=== PATIENT | male | born 1965 | race Caucasian/White ===

== ENCOUNTER 2016-09-12 08:07 | Day surgery (SDC) | payer BC ==
[2016-09-10 11:48] VITALS: BMI 27.7
[~2016-09-12 08:07] MED LIST: LACTATED RINGERS 1,000 ML IV SCH
[2016-09-12 08:23] VITALS: TEMP 98
[2016-09-12] MEDS ORDERED: LIDOCAINE 1% 20 ML VIAL (10MG/ML) FOR IV START INTRADERMA ONE (08:32)
[2016-09-12] MEDS ORDERED: PROPOFOL 10 MG/ML 20 ML VIAL IV ONE (08:45)
[2016-09-12] MEDS ORDERED: LIDOCAINE 1% INJ 10MG/ML (20 ML MDV) ONE (08:45)
--- NOTE | 2016-09-12 09:02 | P.PCN ---
Date of Procedure: 09/12/16 Procedure(s) Performed: BRIEF HISTORY: Patient is a 50-year-old pleasant white male, scheduled for an elective colonoscopy as a part of evaluation of a personal history of APC gene family history of FAP. He had prior colonoscopies and was noted to have tubular adenoma and his last colonoscopy was 2 years ago. PROCEDURE PERFORMED: Colonoscopy. PREOPERATIVE DIAGNOSIS: History of colon polyps/posterior history of APC gene IV sedation per Anesthesia. PROCEDURE: After informed consent was obtained, the patient, was brought into the endoscopy unit. IV conscious sedation was administered by Anesthesia under continuous monitoring. Distal rectal examination was normal. Initially the Olympus CF-160 flexible video colonoscope was then inserted in the rectum, gradually advanced into the cecum without any difficulty. Careful examination was performed as the scope was gradually being withdrawn. Ileocecal valve and the appendiceal orifice were visualized and appeared normal. Prep was excellent. Mucosa of the cecum, ascending colon, transverse colon, descending colon, sigmoid colon, and rectum appeared normal. Retroflexion was performed in the rectum and no lesions were seen. The patient tolerated the procedure well. IMPRESSION: Normal-appearing colon from rectum to cecum with no evidence of colorectal neoplasia . RECOMMENDATIONS: Findings of this examination were discussed with the patient as well as his family. He was advised to have a repeat screening colonoscopy in one to 2 years.
[2016-09-12 09:27] VITALS: BP 131/88; PULSE 76; RESP 18
== END 2016-09-12 09:45 | disposition home or self-care (01) ==
LOC: ORWHC2ENDO 08:07
PROVIDERS: ATTEND Internal Medicine Gastroenterology
DX: Z12.11 Encounter for screening for malignant neoplasm of colon (principal); Z86.010 Personal history of colon polyps; Z83.71 Family history of colonic polyps; E07.9 Disorder of thyroid, unspecified; K21.9 Gastro-esophageal reflux disease without esophagitis; Z87.891 Personal history of nicotine dependence; Z79.899 Other long term (current) drug therapy; Z98.890 Other specified postprocedural states
CPT/HCPCS: J2001; J2704; G0105; 99153

== ENCOUNTER 2017-03-27 08:31 | Day surgery (SDC) | payer BC ==
[2017-03-25 15:50] VITALS: BMI 27.0
[2017-03-27 10:04] VITALS: TEMP 97.1
[2017-03-27] MEDS ORDERED: LIDOCAINE 1% 20 ML VIAL (10MG/ML) FOR IV START INTRADERMA ONE (10:11)
[2017-03-27] MEDS ORDERED: LACTATED RINGERS 1,000 ML IV ONE ×2 (10:11)
[2017-03-27] MEDS ORDERED: PROPOFOL 10 MG/ML 20 ML VIAL IV ONE (10:37)
[2017-03-27 11:19] VITALS: BP 135/92; PULSE 67; RESP 16
--- NOTE | 2017-03-27 12:09 | P.PCN ---
Date of Procedure: 03/27/17 Preoperative Diagnosis: Postoperative Diagnosis: Procedure(s) Performed: BRIEF HISTORY: Patient is a []-year-old, pleasant, white male, scheduled for an elective upper endoscopy as a part of evaluation of chest pressure, chest pain and excessive burping for the last 2 months duration. He does have history of gastroesophageal reflux symptoms and Acharya's esophagus and last upper endoscopy was done 18 months ago. Biopsies did not show any evidence of dysplasia. Because of worsening symptoms he scheduled for repeat upper endoscopy today. He is on Prilosec 20 mg twice daily and was just started on Carafate 1 g 4 times daily. PROCEDURE PERFORMED: Esophagogastroduodenoscopy with biopsy. PREOPERATIVE DIAGNOSIS: Chest pressure, chest pain, history of GERD and Acharya' s esophagus. IV sedation per anesthesia. PROCEDURE: After informed consent was obtained, the patient was brought into the endoscopy unit. IV sedation was administered by Anesthesia under continuous monitoring. Initially the Olympus GIF-140 video endoscope was inserted into the mouth. Esophagus intubated without any difficulty. It was gradually advanced into the stomach and duodenum and carefully examined. The bulb and the second part of the duodenum appeared normal. The scope at this time was withdrawn to the stomach, adequately insufflated with air, and upon careful examination, mucosa of the antrum, had mild gastritis and biopsies were done from this area. The body, cardia and the fundus appeared normal. The scope was then withdrawn into the esophagus. Small hiatal hernia noted. The GE junction was located at 40 cm from the incisors. There was Acharya's esophagus extending from 38-40 minutes from the incisors and multiple biopsies were done from this area. The rest of the esophagus appeared normal. There were no erosions or ulcerations seen and the patient tolerated the procedure well. IMPRESSION: 1. Acharya's esophagus status post biopsy. 2. Small hernia. 3. Mild antral gastritis RECOMMENDATIONS: The findings of this examination were discussed with the patient as well as his family. He was advised to follow with the biopsy results. In the meantime he will continue with Prilosec 20 mg twice daily as well as Carafate 1 g 4 times daily. Since there were no significant changes noted on upper endoscopy today compared to his previous exam 18 months ago, and with his ongoing symptoms I suggested that he undergo cardiac workup. Implants: Indications for Procedure: Operative Findings: Description of Procedure:
== END 2017-03-27 11:48 | disposition home or self-care (01) ==
LOC: ORWHC2ENDO 08:31
PROVIDERS: ATTEND Internal Medicine Gastroenterology
DX: K22.70 Barrett's esophagus without dysplasia (principal); K29.50 Unspecified chronic gastritis without bleeding; K44.9 Diaphragmatic hernia without obstruction or gangrene; E07.9 Disorder of thyroid, unspecified; Z79.899 Other long term (current) drug therapy; Z87.891 Personal history of nicotine dependence
CPT/HCPCS: 88305; 88342; 43239; J2704

== ENCOUNTER → 2017-04-14 | Outpatient (CLI) | payer BC ==
[2017-04-14 14:32] LABS: Basophils % (A) 0 %; CH 31.3; CHCM 34.2; Eosinophils # (A) 0.1 k/uL (0-0.7); Eosinophils % (A) 1 %; HCT 48.1 % (39.0-53.0); HDW 2.58; HGB 16.4 gm/dL (13.0-17.5); Luc % (Auto) 1; Lymphocytes # (A) 2.9 k/uL (1.0-4.8); Lymphocytes % (A) 37 %; MCH 31.3 pg (25.0-35.0); MCHC 34.1 g/dL (31.0-37.0); MCV 91.8 fL (80.0-100.0); Mean Platelet Volume 7.2; Monocytes # (A) 0.3 k/uL (0-1.0); Monocytes % (A) 3 %; Neutrophils # (A) 4.4 k/uL (1.3-7.7); Neutrophils % (A) 57 %; RBC 5.23 m/uL (4.30-5.90); RDW 12.8 % (11.5-15.5); WBC 7.8 k/uL (3.8-10.6); WBC (Perox) 7.77
[2017-04-14 14:52] LABS: Anion Gap 9 mmol/L; Blood Urea Nitrogen 14 mg/dL (9-20); Carbon Dioxide 29 mmol/L (22-30); Chloride 103 mmol/L (98-107); Non-African American GFR(MDRD) >60 (>60 ml/min/1.73 sqM); Potassium 4.6 mmol/L (3.5-5.1); Sodium 141 mmol/L (137-145)
== END | disposition home or self-care (01) ==
LOC: LABPAT 14:06
PROVIDERS: ATTEND Internal Medicine Cardiovascular Disease
DX: Z01.812 Encounter for preprocedural laboratory examination (principal); R94.30 Abnormal result of cardiovascular function study, unspecified
CPT/HCPCS: 80051; 82565; 84520; 85025

== ENCOUNTER → 2017-04-14 | Outpatient (CLI) | payer BC ==
--- NOTE | 2017-04-14 12:01 | P.STRESS ---
- Stress Test Note Stress Test Results/Findings: Exam Performed: stress echo exercise Exam Date: 04/14/17 Reason for Exam: CP Height: 6 ft 1 in Weight: 92.986 kg Protocol: KAMRAN Stage: 4 Duration of Exercise: 10:00 Resting Heart Rate: 89 Resting Blood Pressure: 127/95 Maximum Achieved Heart Rate: 154 Maximum Achieved Blood Pressure: 197/105 85% PMHR: 144 100% PMHR: 169 METS: 11.7 Technologist Comment: Stress Test Results/Findings: This is a 51-year-old gentleman being evaluated for chest and arm baseline. Baseline EKG showed sinus rhythm with normal [place] interval and QRS duration. Patient walked on the Kamran protocol for 10 minutes achieving a maximum heart rate of 154 with a blood pressure 159/89. EKG taken during exercise showed about 1-[address] depression in the inferolateral leads suggestive of ischemia. These changes persisted for about 4-5 minutes post exercise.. Patient did not experience any chest pain. New Echo data: Baseline echo images showed normal wall motion and thickening. Exercise echo images and lack of augmentation of wall motion and thickening in the lateral wall, involving the mid and apical segments. The rest of the segments were augmenting properly. Final impression: #1. Positive stress test #2. Good exercise capacity #3. Positive stress echo with inducible ischemia in the mid and apical lateral wall.
--- NOTE | 2017-04-14 12:52 | ECHOS ---
Stress Test Results/Findings: Exam Performed: stress echo exercise Exam Date: 04/14/17 Reason for Exam: CP Height: 6 ft 1 in Weight: 92.986 kg Protocol: KAMRAN Stage: 4 Duration of Exercise: 10:00 Resting Heart Rate: 89 Resting Blood Pressure: 127/95 Maximum Achieved Heart Rate: 154 Maximum Achieved Blood Pressure: 197/105 85% PMHR: 144 100% PMHR: 169 METS: 11.7 Technologist Comment: Stress Test Results/Findings: This is a 51-year-old gentleman being evaluated for chest and arm baseline. Baseline EKG showed sinus rhythm with normal [place] interval and QRS duration. Patient walked on the Kamran protocol for 10 minutes achieving a maximum heart rate of 154 with a blood pressure 159/89. EKG taken during exercise showed about 1-[address] depression in the inferolateral leads suggestive of ischemia. These changes persisted for about 4-5 minutes post exercise.. Patient did not experience any chest pain. New Echo data: Baseline echo images showed normal wall motion and thickening. Exercise echo images and lack of augmentation of wall motion and thickening in the lateral wall, involving the mid and apical segments. The rest of the segments were augmenting properly. Final impression: #1. Positive stress test #2. Good exercise capacity #3. Positive stress echo with inducible ischemia in the mid and apical lateral wall. MTDD
== END | disposition home or self-care (01) ==
LOC: RADNMMAIN 09:12
PROVIDERS: ATTEND Internal Medicine Geriatric Medicine
DX: R07.9 Chest pain, unspecified (principal)
CPT/HCPCS: 93017; 93350

== ENCOUNTER 2017-04-16 08:54 | Day surgery (SDC) | payer BC ==
[2017-04-15 08:58] VITALS: BMI 27.0
[~2017-04-16 08:54] MED LIST changes: +ALPRAZolam 0.25 MG TAB PO PRN; +ALPRAZolam 0.5 MG TAB PO PRN; +ASPIRIN 325 MG TAB PO STA; +ATORVASTATIN 80 MG TAB PO STA; -LACTATED RINGERS 1,000 ML IV SCH; +NITROGLYCERIN SL TABS 0.4 MG TAB SUBLINGUAL PRN; +SODIUM CHLORIDE 0.9% 1,000 ML in EMPTY BAG 1 BAG IV ONE
[2017-04-16] MEDS ORDERED: VERAPAMIL 2.5 MG/ML 2 ML AMP ONE (09:48)
[2017-04-16] MEDS ORDERED: LIDOCAINE 2% INJ 20 MG/ML (20 ML MDV) ONE (09:48)
[2017-04-16] MEDS ORDERED: MIDAZOLAM 2 MG/2 ML VIAL ONE (09:53)
[2017-04-16] MEDS ORDERED: fentaNYL (PF) 50 MCG/ML 2 ML AMP ONE (09:53)
[2017-04-16] MEDS ORDERED: fentaNYL (PF) 50 MCG/ML 2 ML AMP IV ONE (10:06)
[2017-04-16] MEDS: MIDAZOLAM 2 MG/2 ML VIAL IV ONE ×2 (10:06→11:00)
[2017-04-16] MEDS ORDERED: SODIUM CHLORIDE 0.9% 1,000 ML IV ONE (10:07)
[2017-04-16] MEDS ORDERED: LIDOCAINE 2% INJ 20 MG/ML SQ ONE (10:08)
[2017-04-16] MEDS ORDERED: HEPARIN SODIUM 1,000 UN/ML (10ML VL) ONE (10:08)
[2017-04-16] MEDS ORDERED: VERAPAMIL SYRINGE (5 MG/10 ML) INTRAARTER ONE (10:12)
[2017-04-16] MEDS ORDERED: CLOPIDOGREL 75 MG TAB PO ONE (10:50)
[2017-04-16] MEDS ORDERED: BIVALIRUDIN BOLUS 250 MG/50 ML IV ONE (10:50)
--- NOTE | 2017-04-16 10:50 | P.PCN ---
Date of Procedure: 04/16/17 Preoperative Diagnosis: Angina with positive stress test Postoperative Diagnosis: Critical 2 vessel disease Procedure(s) Performed: Implants: Indications for Procedure: Operative Findings: Description of Procedure: HISTORY: This is a 51-year-old gentleman with remote history of smoking who has been experiencing intermittent chest pains radiating to both arms. Stress test was positive with ischemic changes on the EKG and ischemic wall motion abnormalities involving the lateral wall. Patient is advised to have cardiac catheterization for definitive diagnosis. CONSENT:I have discussed the risks, benefits and alternative therapies for the above-mentioned procedure and for both sedation/analgesia as well as necessary blood product administration, if indicated, as they pertain to this patient. The patient has indicated understanding and acceptance of the risks and procedures discussed. PROCEDURE: Patient was brought to the lab in a fasting state. Patient was given some IV sedation. The right wrist area is infiltrated with lidocaine and right radial artery was entered using Seldinger technique. A 6-Kittitian catheter was left in place and selective coronary arteriography was performed. Patient tolerated the procedure well. Patient is found to have critical stenosis involving the distal RCA and also the distal circumflex. Patient is waiting to have stent placement of the both lesions by Dr. Kelsey. No immediate complications were noted . Patient was given 3500 units of heparin during the procedure Conscious Sedation: Versed 1mg Fentanyl 50 g Duration 26 minutes HEMODYNAMICS: . The aortic pressure is 130/88. Left ankle end-diastolic pressure was about 12-15. There was no gradient across the aortic valve SELECTIVE CORONARY ARTERIOGRAPHY: LEFT MAIN: Normal THE LEFT ANTERIOR DESCENDING CORONARY ARTERY: , Relatively small caliber vessel and free of any occlusive disease THE LEFT CIRCUMFLEX AND IS CORONARY ARTERY: . Moderate caliber vessel giving rise to good-sized OM branch. Distal circumflex has about 80-90% stenosis THE RIGHT CORONARY ARTERY: . This a dominant vessel and huge in size. Has about 95% stenosis in the distal portion LEFT VENTRICULOGRAPHY: Not performed FINAL IMPRESSION: . Critical 2 vessel disease PLAN: Stent placement of the right and also circumflex to be done by Dr. Kelsey . PROGNOSIS: Fair
[2017-04-16] MEDS ORDERED: BIVALIRUDIN 250 MG in SODIUM CHLORIDE 0.9% 50 ML IV ONE (10:51)
[2017-04-16] MEDS ORDERED: CLOPIDOGREL 75 MG TAB ONE (10:52)
[2017-04-16] MEDS: NITROGLYCERIN 1000MCG/10ML SYRINGE INTRACORON ONE ×2 (11:13→11:20)
[2017-04-16] MEDS ORDERED: IOHEXOL 350 MG/ML 125ML BOTTLE INJ ONE (11:31)
[2017-04-16] MEDS ORDERED: NITROGLYCERIN SL TABS 0.4 MG TAB SUBLINGUAL PRN (11:46)
[2017-04-16] MEDS ORDERED: MAG HYDROX/AL HYDROX/SIMETH 30 ML CUP PO PRN (11:46)
[2017-04-16] MEDS ORDERED: RX INFO: IV CONTRAST WAS GIVEN 1 EACH MISC MISCELLANE PRN (11:46)
[2017-04-16] MEDS ORDERED: ZOLPIDEM 5 MG TAB PO PRN (11:46)
[2017-04-16] MEDS ORDERED: ATROPINE SULFATE 0.1 MG/ML 10ML SYRINGE IV PRN (11:46)
[2017-04-16] MEDS ORDERED: SODIUM CHLORIDE 0.9% 1,000 ML IV SCH (12:00)
[2017-04-16] MEDS ORDERED: amLODIPine 5 MG TAB ONE (12:54)
[2017-04-16] MEDS ORDERED: amLODIPine 5 MG TAB PO STA (12:57)
[2017-04-16] MEDS: SUCRALFATE 1 GM TAB PO SCH ×3 (17:44→20:30)
[2017-04-16] MEDS: METOPROLOL TARTRATE 25 MG TAB PO SCH (20:30)
[2017-04-16] MEDS ORDERED: ATORVASTATIN 40 MG TAB PO SCH (21:00)
[2017-04-17 01:44] VITALS: RESP 16
[2017-04-17] MEDS ORDERED: LEVOTHYROXINE 100 MCG TAB PO SCH (06:30)
[2017-04-17 07:05] LABS: Anion Gap 6 mmol/L; Blood Urea Nitrogen 13 mg/dL (9-20); Carbon Dioxide 24 mmol/L (22-30); Chloride 106 mmol/L (98-107); Cholesterol 134 mg/dL (<200); Glucose 102 mg/dL (74-99); HDL Cholesterol 36 mg/dL (40-60); Non-African American GFR(MDRD) >60 (>60 ml/min/1.73 sqM); Potassium 3.9 mmol/L (3.5-5.1); Sodium 136 mmol/L (137-145)
[2017-04-17] MEDS ORDERED: PANTOPRAZOLE 40 MG TABLET PO SCH (07:30)
[2017-04-17] MEDS ORDERED: ASPIRIN 81 MG CHEW PO SCH (09:00)
[2017-04-17] MEDS: METOPROLOL TARTRATE 25 MG TAB PO SCH (09:05)
[2017-04-17] MEDS: SUCRALFATE 1 GM TAB PO SCH (09:05)
[2017-04-17 09:15] VITALS: PULSE 86; TEMP 97.7
--- NOTE | 2017-04-17 11:12 | P.DS ---
Providers Date of admission: 04/16/2017 Expected date of discharge: 04/17/17 Attending physician: Richie Fuentes Consults: 04/16/17 11:46 Consult Physician Routine Consulting Provider: [facility] Consult Reason/Comments: Post Interventional patient Do you want consulting provider notified?: Already Contacted Primary care physician: Stated None Hospital Course: INTERVAL HISTORY: The patient is a 51-year-old male admitted to the hospital by Dr. Fuentes. Pt presents for an elective heart catheterization s /p positive exercise stress echo. He showed distal circumflex 80-90% stenosis and distal RCA 95% stenosis. He received 3 stents. He has recovered well overnight with no complaints of chest pain or shortness of breath. PHYSICAL EXAMINATION: Blood pressure 149/92, heart rate 86, respirations 16, temp 97.7. Patient is 96% on room air. HEART: S1, S2 normal. LUNGS: Clear to auscultation. NECK: Supple. ABDOMEN: Soft. EXTREMITIES: 2+ peripheral pulses. Right wrist no signs of hematoma, redness, swelling with strong radial pulse. LAB DATA: Potassium 3.9, BUS and 13, creatinine 0.8. FINAL IMPRESSION: 1. Coronary artery disease. 2. Essential hypertension. 3. GERD. 4. Hypothyroidism. PLAN: Patient may be able to be discharged home today. We will make him a follow -up appointment with Dr. Fuentes in 1-week. He has been given instructions for light activity and no lifting, pulling or pushing with right arm. He should remain off work until follow up visit. Procedures: Left heart catheterization via right radial approach with stenting. Patient Condition at Discharge: Good Plan - Discharge Summary New Discharge Prescriptions: New Clopidogrel [Plavix] 75 mg PO DAILY #30 tab Lisinopril [Zestril] 5 mg PO DAILY #30 tablet Continue Glucosamine Sulfate 1,500 mg PO BID PRN PRN Reason: ARTHRITIS Omeprazole 20 mg PO BID Levothyroxine Sodium [Synthroid] 200 mcg PO DAILY Sucralfate [Carafate] 1 gm PO QID Multivitamin [Men's Multi-Vitamin] 1 tab PO DAILY Aspirin 81 mg PO DAILY Metoprolol Tartrate 25 mg PO BID Discontinued Isosorbide Mononitrate ER [Imdur] 30 mg PO DAILY Discharge Medication List Glucosamine Sulfate 1,500 mg PO BID PRN 09/10/16 [History] Levothyroxine Sodium [Synthroid] 200 mcg PO DAILY 09/10/16 [History] Omeprazole 20 mg PO BID 09/10/16 [History] Sucralfate [Carafate] 1 gm PO QID 03/25/17 [History] Multivitamin [Men's Multi-Vitamin] 1 tab PO DAILY 03/27/17 [History] Aspirin 81 mg PO DAILY 04/15/17 [History] Metoprolol Tartrate 25 mg PO BID 04/16/17 [History] Clopidogrel [Plavix] 75 mg PO DAILY #30 tab 04/17/17 [Rx] Lisinopril [Zestril] 5 mg PO DAILY #30 tablet 04/17/17 [Rx] Follow up Appointment(s)/Referral(s): Richie Fuentes MD [STAFF PHYSICIAN] - 1 Week Patient Instructions/Handouts: *[facility] - After Heart Catheterization - Salon Assistant Instructions Activity/Diet/Wound Care/Special Instructions: Heart healthy diet. No lifting, pushing or pulling with right arm for 1 week. Light activity for 1-week until follow-up visit with Dr. Fuentes. Discharge Disposition: HOME SELF-CARE
[2017-04-17] MEDS ORDERED: LISINOPRIL 10 MG TAB PO SCH (11:15)
[2017-04-17] MEDS ORDERED: CLOPIDOGREL 75 MG TAB PO SCH (11:48)
[2017-04-17 12:35] VITALS: BP 148/96
--- NOTE | 2017-04-17 12:50 | PTCA ---
PERCUTANEOUSTRANS CORORONARY ANGIOGRAPHY Date of Service: Mr. Crabtree is a 51-year-old male with no prior documented history of coronary artery disease, who presented with vague symptoms of discomfort, underwent stress test that showed evidence of inducible ischemia as well as EKG changes. In view of that, he underwent cardiac catheterization by Dr. Fuentes and was found to have significant obstructive disease involving the left circumflex and the right coronary artery. Recommendation made regarding angioplasty and stenting. The procedures, risks, and complications were discussed with the patient who was in full understanding and agreement. PROCEDURE: A 6-Libyan FR4 guiding catheter introduced into the system. After cannulating the right coronary ostium, a 0.014 Advanced medium-weight J-wire was advanced across the lesion and positioned distally. Then a 4.0 x 18 mm Xience Alpine stent was deployed, post-dilated at 16 atmospheres. Following that, the balloon was removed and a 4.0 x 12 mm Xience Alpine stent was deployed proximal to the first one and post-dilated at 16 atmosphere. After the last inflation, after appropriate wait, the balloon and guidewire were withdrawn back in the guiding catheter. Images were obtained and repeated. Those images revealed stable successful stenting. At that point, the guiding catheter, the balloon and the guidewire were removed and a 6 Libyan FL4 guiding catheter was introduced into the system. After cannulating the left main, the 0.014 Advanced medium-weight J-wire was advanced in the second obtuse marginal branch and a 3.0 x 18 mm Xience Alpine stent was deployed, post-dilated at 14 atmospheres. After the last inflation, after appropriate wait, the balloon and guidewire were withdrawn back in the guiding catheter. Images were obtained and repeated. Those images reveal stable, successful stenting. At that point, the guiding catheter, the balloon and the guidewire were removed. The sheath was removed. Hemostasis was obtained with deployment of a TR band. There was no immediate complication. Patient was returned to his room in stable condition. Of note, the patient received Angiomax per protocol, as well as oral loading dose of clopidogrel. He had EKG changes with the RCA inflation and some shoulder discomfort with the obtuse marginal branch inflation. RESULTS: 1. Successful stenting of the distal right coronary artery with reduction of stenosis from 95% to 0%. 2. Successful stenting of the second obtuse marginal branch with reduction of stenosis from 80% to 0%. RECOMMENDATION: Patient will be contained on aspirin, Plavix, statin. The importance of dual antiplatelet treatment was discussed with the patient and his family who are in full understanding and agreement. DURATION OF THE PROCEDURE: 34 minutes. JOHANN / BASIL: [id number] /
--- NOTE | 2017-04-17 12:58 | LTR ---
Date: 04/16/[address] Tsang; I had the pleasure to perform coronary angioplasty and stenting on Mr. Crabtree at [facility] on April 16, 2017 and a full copy of the procedure note will be forwarded to you. In brief, he underwent successful stenting of his RCA and second obtuse marginal branch using a drug-eluting stent. I am hopeful that this procedure will stabilize his status and thank you again for allowing me to participate in this patient's care. Please feel free to call for any questions. Sincerely yours, Suzi Kelsey MD [facility] / NIKOLAIN: [id number] /
== END 2017-04-17 12:53 | disposition home or self-care (01) ==
LOC: CATHCVL 08:54 → 6SEL 11:30 → CATHCVL 04-17 12:53
PROVIDERS: ATTEND Internal Medicine Cardiovascular Disease
DX: I25.118 Atherosclerotic heart disease of native coronary artery with other forms of angina pectoris (principal); Z87.891 Personal history of nicotine dependence; Z85.850 Personal history of malignant neoplasm of thyroid; Z79.899 Other long term (current) drug therapy
CPT/HCPCS: 93458; 85347; 80061; 80048; 99152; 99153 ×5; C9600 ×2; C1769; C1887 ×2; C1874; J2001; J2250; J3010; J0583; J1644; Q9967

== ENCOUNTER → 2017-08-22 | Outpatient (CLI) | payer BC ==
[2017-08-22 10:50] LABS: ALT 56 U/L (21-72); AST 40 U/L (17-59); Albumin 4.1 g/dL (3.5-5.0); Alkaline Phosphatase 80 U/L (38-126); Anion Gap 9 mmol/L; Blood Urea Nitrogen 16 mg/dL (9-20); Calcium 9.7 mg/dL (8.4-10.2); Carbon Dioxide 30 mmol/L (22-30); Chloride 101 mmol/L (98-107); Cholesterol 133 mg/dL (<200); Glucose 100 mg/dL (74-99); HDL Cholesterol 67 mg/dL (40-60); LDL Cholesterol,Calculated 51 mg/dL (0-99); Potassium 4.7 mmol/L (3.5-5.1); Sodium 140 mmol/L (137-145); Total Protein 6.9 g/dL (6.3-8.2); Triglycerides 76 mg/dL (<150)
== END | disposition home or self-care (01) ==
LOC: LABWHC1 09:41
PROVIDERS: ATTEND Internal Medicine Interventional Cardiology
DX: E78.2 Mixed hyperlipidemia (principal)
CPT/HCPCS: 36415; 80053; 80061

== ENCOUNTER → 2017-10-08 | Outpatient (CLI) | payer BC ==
[2017-10-08 11:50] LABS: Basophils % (A) 1 %; Eosinophils % (A) 0 %; HCT 48.4 % (39.0-53.0); HGB 15.3 gm/dL (13.0-17.5); Lymphocytes # (A) 3.1 k/uL (1.0-4.8); Lymphocytes % (A) 39 %; MCH 30.5 pg (25.0-35.0); MCHC 31.6 g/dL (31.0-37.0); MCV 96.7 fL (80.0-100.0); Mean Platelet Volume 7.3; Monocytes # (A) 0.3 k/uL (0-1.0); Monocytes % (A) 4 %; Neutrophils # (A) 4.4 k/uL (1.3-7.7); Neutrophils % (A) 56 %; Platelet Count 230 k/uL (150-450); RDW 12.4 % (11.5-15.5); WBC 7.9 k/uL (3.8-10.6)
[2017-10-08 11:59] LABS: ALT 45 U/L (21-72); AST 27 U/L (17-59); Alkaline Phosphatase 88 U/L (38-126); Anion Gap 7 mmol/L; Blood Urea Nitrogen 17 mg/dL (9-20); Calcium 9.6 mg/dL (8.4-10.2); Carbon Dioxide 32 mmol/L (22-30); Chloride 102 mmol/L (98-107); Cholesterol 128 mg/dL (<200); Glucose 100 mg/dL (74-99); HDL Cholesterol 65 mg/dL (40-60); LDL Cholesterol,Calculated 46 mg/dL (0-99); Potassium 4.2 mmol/L (3.5-5.1); Sodium 141 mmol/L (137-145); Total Bilirubin 0.7 mg/dL (0.2-1.3); Total Protein 6.7 g/dL (6.3-8.2); Triglycerides 83 mg/dL (<150)
[2017-10-08 12:14] LABS: T4, Free (Free Thyroxine) 1.45 ng/dL (0.78-2.19)
[2017-10-08 12:28] LABS: Prostate Specific Antigen 0.62 ng/mL (0.00-4.00)
[2017-10-08 22:50] LABS: Hemoglobin A1C 5.3 % (4.0-6.0)
== END | disposition home or self-care (01) ==
LOC: LABWHC1 11:26
PROVIDERS: ATTEND Internal Medicine Geriatric Medicine
DX: Z00.00 Encounter for general adult medical examination without abnormal findings (principal); E78.00 Pure hypercholesterolemia, unspecified; K22.719 Barrett's esophagus with dysplasia, unspecified; I10 Essential (primary) hypertension; R79.9 Abnormal finding of blood chemistry, unspecified; E03.9 Hypothyroidism, unspecified; N40.0 Benign prostatic hyperplasia without lower urinary tract symptoms
CPT/HCPCS: 36415; 80053; 80061; 83036; 84153; 84439; 84443; 85025

== ENCOUNTER → 2018-01-15 | Outpatient (CLI) | payer BC ==
[2018-01-15 10:35] LABS: ALT 43 U/L (21-72); AST 30 U/L (17-59); Cholesterol 123 mg/dL (<200); HDL Cholesterol 66 mg/dL (40-60); LDL Cholesterol,Calculated 43 mg/dL (0-99); Triglycerides 71 mg/dL (<150)
== END | disposition home or self-care (01) ==
LOC: LABWHC1 09:59
PROVIDERS: ATTEND Internal Medicine Interventional Cardiology
DX: E78.2 Mixed hyperlipidemia (principal)
CPT/HCPCS: 36415; 80061; 84450; 84460

== ENCOUNTER → 2018-05-19 | Outpatient (CLI) | payer BC ==
[2018-05-19 10:35] LABS: Basophils % (A) 0 %; Eosinophils # (A) 0.1 k/uL (0-0.7); Eosinophils % (A) 1 %; HGB 14.4 gm/dL (13.0-17.5); Lymphocytes # (A) 2.9 k/uL (1.0-4.8); Lymphocytes % (A) 36 %; MCH 31.6 pg (25.0-35.0); MCHC 32.7 g/dL (31.0-37.0); MCV 96.7 fL (80.0-100.0); Mean Platelet Volume 7.5; Monocytes # (A) 0.3 k/uL (0-1.0); Monocytes % (A) 4 %; Neutrophils # (A) 4.8 k/uL (1.3-7.7); Neutrophils % (A) 58 %; Platelet Count 249 k/uL (150-450); RBC 4.55 m/uL (4.30-5.90); RDW 12.8 % (11.5-15.5); WBC 8.2 k/uL (3.8-10.6)
[2018-05-19 11:47] LABS: ALT 48 U/L (21-72); AST 31 U/L (17-59); Albumin 3.5 g/dL (3.5-5.0); Alkaline Phosphatase 77 U/L (38-126); Anion Gap 7 mmol/L; Blood Urea Nitrogen 15 mg/dL (9-20); Calcium 8.9 mg/dL (8.4-10.2); Carbon Dioxide 26 mmol/L (22-30); Chloride 107 mmol/L (98-107); Cholesterol 126 mg/dL (<200); Glucose 101 mg/dL (74-99); HDL Cholesterol 75 mg/dL (40-60); LDL Cholesterol,Calculated 42 mg/dL (0-99); Potassium 4.5 mmol/L (3.5-5.1); Sodium 140 mmol/L (137-145); Total Bilirubin 0.6 mg/dL (0.2-1.3); Total Protein 6.1 g/dL (6.3-8.2); Triglycerides 43 mg/dL (<150)
[2018-05-19 12:03] LABS: T4, Free (Free Thyroxine) 1.47 ng/dL (0.78-2.19)
[2018-05-19 19:14] LABS: Hemoglobin A1C 5.1 % (4.0-6.0)
== END | disposition home or self-care (01) ==
LOC: LABWHC1 09:11
PROVIDERS: ATTEND Internal Medicine Geriatric Medicine
DX: K22.719 Barrett's esophagus with dysplasia, unspecified (principal); I25.84 Coronary atherosclerosis due to calcified coronary lesion; I10 Essential (primary) hypertension; Z13.1 Encounter for screening for diabetes mellitus
CPT/HCPCS: 36415; 80053; 80061; 83036; 84439; 84443; 85025

== ENCOUNTER → 2018-08-18 | Outpatient (CLI) | payer BC ==
[2018-08-18 16:19] LABS: Albumin 4.3 g/dL (3.80-4.90); Albumin/Globulin Ratio 2.53 (1.20-2.10); Anion Gap 6.5 mmol/L (4.00-12.00); Calcium 8.8 mg/dL (8.7-10.3); Carbon Dioxide 26.5 mmol/L (21.6-31.8); Globulin 1.7 g/dL (1.6-3.3); LDL Cholesterol,Calculated 51.2 mg/dL (0.0-131.0); Potassium 4.4 mmol/L (3.5-5.5); Total Bilirubin 0.6 mg/dL (0.3-1.2); VLDL Calculation 28.8 mg/dL (5.00-40.00)
== END ==
LOC: LABWHC1 08:28
PROVIDERS: ATTEND Internal Medicine Interventional Cardiology
DX: E78.2 Mixed hyperlipidemia (principal)
CPT/HCPCS: 36415; 80053; 80061

== ENCOUNTER 2018-09-03 09:34 | Day surgery (SDC) | payer BC ==
[2018-09-02 11:18] VITALS: BMI 27.2
[2018-09-03 10:01] VITALS: RESP 16; TEMP 97.5
[2018-09-03] MEDS ORDERED: LACTATED RINGERS 1,000 ML IV ONE ×2 (10:14→11:21)
[2018-09-03] MEDS ORDERED: LIDOCAINE 1% 20 ML VIAL (10MG/ML) FOR IV START INTRADERMA ONE (10:15)
[2018-09-03] MEDS ORDERED: LIDOCAINE 1% INJ 10MG/ML (20 ML MDV) ONE (10:37)
[2018-09-03] MEDS ORDERED: PROPOFOL 10 MG/ML 20 ML VIAL IV ONE (10:37)
--- NOTE | 2018-09-03 11:26 | P.PCN ---
Date of Procedure: 09/03/18 Procedure(s) Performed: Brief history: Patient is a pleasant 50-year-old white male, scheduled for an elective upper endoscopy as well as colonoscopy as a part of evaluation of history of colon polyps and history of hereditary polyposis syndrome with APC gene mutation. Last coloscopy was 3 years ago. He also has history of GERD and Acharya's esophagus. Procedure performed: Esophagogastroduodenoscopy with biopsy Colonoscopy Preoperative diagnosis: GERD/Acharya's esophagus Personal history of Hereditary polyposis syndrome with APC gene mutation Anesthesia: MAC Procedure: After informed consent was obtained from the patient was brought into the endoscopy unit and IV sedation was administered by anesthesia under continuous monitoring. Initially upper endoscopy was done. The Olympus GF 160 video endoscope was inserted inserted into the mouth and esophagus intubated without any difficulty and was gradually advanced into the stomach and duodenum and carefully examined. The bulb and second part of the duodenum appeared normal. The scope was then withdrawn into the stomach adequately insufflated with air and upon careful examination the antrum and body, cardia and fundus appeared normal. The scope was then withdrawn into the esophagus. Small hiatal hernia noted. The GE junction was located at 40 cm to the incisors. There was Acharya 's esophagus in the distal esophagus extending from 38-40 cm from incisors and multiple biopsies were done from this area. It appeared regular with no erythema erosions or ulcerations. Rest of the esophagus appeared normal. Patient tolerated the procedure well. At this time the patient continued to remain sedation. Initial digital rectal examination was normal. Olympus CF 160 video colonoscope was then inserted into the rectum and gradually advanced to the cecum without any difficulty. Careful examination was performed as the scope was gradually being withdrawn. The prep was excellent. The cecum, ascending colon, transverse colon, descending colon, sigmoid colon and rectum appeared normal. Retroflexion was performed in the rectum and no lesions were noted. Scattered sigmoid diverticulosis seen. Patient tolerated the procedure well. Impression: 1. Upper endoscopy revealed 2 cm segment of Acharya's esophagus and small hiatal hernia 2. Colonoscopy revealed scattered sigmoid diverticulosis but no evidence of colorectal neoplasia Recommendations: Findings of this examination were discussed with the patient as well as his family. He was advised to follow with the biopsy results. He will continue with Prilosec 20 mg daily and follow antireflux measures. He was advised to have repeat upper endoscopy as well as colonoscopy every 1-2 years.
[2018-09-03 11:40] VITALS: BP 144/94; PULSE 68
== END 2018-09-03 12:09 | disposition home or self-care (01) ==
LOC: ORWHC2ENDO 09:34
PROVIDERS: ATTEND Internal Medicine Gastroenterology
DX: Z12.11 Encounter for screening for malignant neoplasm of colon (principal); K22.70 Barrett's esophagus without dysplasia; K44.9 Diaphragmatic hernia without obstruction or gangrene; Z86.010 Personal history of colon polyps; Z87.19 Personal history of other diseases of the digestive system; K57.30 Diverticulosis of large intestine without perforation or abscess without bleeding; Z95.5 Presence of coronary angioplasty implant and graft; I10 Essential (primary) hypertension; Z87.891 Personal history of nicotine dependence; E07.9 Disorder of thyroid, unspecified; Z79.82 Long term (current) use of aspirin; Z79.890 Hormone replacement therapy; Z79.899 Other long term (current) drug therapy
CPT/HCPCS: 88305; 45378; 43239; J2001; J2704

== ENCOUNTER 2018-09-27 10:36 | Observation (INO) | payer BC ==
--- NOTE | 2018-09-27 10:53 | ED ---
General Adult HPI - General Chief complaint: Neuro Symptoms/Deficit Stated complaint: rt arm/facial numbness Time Seen by Provider: 09/27/18 10:47 Source: patient, RN notes reviewed, old records reviewed Mode of arrival: ambulatory Limitations: no limitations - History of Present Illness Initial comments: 53-year-old male history of hypertension, CAD status post stenting presents for evaluation of chest pain, right arm numbness and tingling, left face numbness and tingling. Symptoms have been intermittent over the past 12-16 hours. Patient states he has been compliant with his medication, no recent medication changes. Denies left-sided chest pain, pain is predominantly right sided and intermittent. Denies focal weakness. Denies gait instability. Denies headache. Denies vision changes. Denies dysuria. Denies diaphoresis or vomiting. - Related Data Home Medications Medication Instructions Recorded Confirmed Glucosamine Sulfate 1,500 mg PO BID PRN 09/10/16 09/27/18 Levothyroxine Sodium [Synthroid] 200 mcg PO DAILY 09/10/16 09/27/18 Omeprazole 20 mg PO BID 09/10/16 09/27/18 Multivitamin [Men's Multi-Vitamin] 1 tab PO DAILY 03/27/17 09/27/18 Aspirin 81 mg PO DAILY 04/15/17 09/27/18 Metoprolol Tartrate 25 mg PO BID 04/16/17 09/27/18 Previous Rx's Medication Instructions Recorded Atorvastatin [Lipitor] 40 mg PO HS tab 04/17/17 Lisinopril [Zestril] 5 mg PO DAILY #30 tablet 04/17/17 Allergies Allergy/AdvReac Type Severity Reaction Status Date / Time No Known Allergies Allergy Verified 09/27/18 11:51 Review of Systems ROS Statement: Those systems with pertinent positive or pertinent negative responses have been documented in the HPI. ROS Other: All systems not noted in ROS Statement are negative. Past Medical History Past Medical History: Cancer, GERD/Reflux, Hyperlipidemia, Hypertension, Thyroid Disorder Additional Past Medical History / Comment(s): 3 stents, HX THYROID CANCER, hx. colon polyps, occasional blood in stool, hx. hemorrhoids,. HX (FAP) FAMILIAL ADENOMATOUS POLYPOSIS. CRUZ'S ESOPHAGUS History of Any Multi-Drug Resistant Organisms: None Reported Past Surgical History: Heart Catheterization With Stent Additional Past Surgical History / Comment(s): THYROIDECTOMY, EGD, COLONOSCOPY Past Anesthesia/Blood Transfusion Reactions: No Reported Reaction Date of Last Stent Placement:: 2016 Past Psychological History: No Psychological Hx Reported Smoking Status: Former smoker Past Alcohol Use History: Occasional Past Drug Use History: None Reported - Past Family History Father Family Medical History: Cancer Additional Family Medical History / Comment(s): MELENOMA Mother Family Medical History: Pulmonary Embolus General Exam Limitations: no limitations General appearance: alert, in no apparent distress Head exam: Present: atraumatic, normocephalic Eye exam: Present: normal appearance, PERRL ENT exam: Present: normal exam Neck exam: Present: normal inspection. Absent: tenderness, meningismus Respiratory exam: Absent: normal lung sounds bilaterally, respiratory distress Cardiovascular Exam: Present: regular rate, normal rhythm GI/Abdominal exam: Present: soft. Absent: distended, tenderness Extremities exam: Present: normal inspection, normal capillary refill. Absent: pedal edema, calf tenderness Neurological exam: Present: alert, oriented X3, CN II-XII intact. Absent: motor sensory deficit (Patient has no focal neurologic findings, no numbness, no weakness, NIH is 0) Psychiatric exam: Present: normal affect, normal mood Skin exam: Present: warm, dry, intact. Absent: cyanosis, diaphoretic Course Vital Signs 09/27/18 10:38 Temperature 98 F Pulse Rate 83 Respiratory 18 Rate Blood Pressure 170/115 O2 Sat by Pulse 98 Oximetry - Reevaluation(s) Reevaluation #1: 09/27/18 13:06 Patient reevaluated, resting comfortably, stable vitals, no change to exam. EKG Findings - EKG Comments: EKG Findings:: EKG: Normal sinus rhythm, incomplete right bundle no ST segment elevation or depression, LVH, rate of 78, VA interval 144, QRS duration 104, QTC 445 Medical Decision Making - Medical Decision Making 53-year-old male presenting with chief complaint chest pain and left arm paresthesia. Patient is well-appearing, hypertensive on initial evaluation. Nonfocal neurologic exam. Chest pain has been typical and atypical features. EKG appears unchanged compared to baseline. Patient has chest x-ray which is negative for acute cardiopulmonary findings, head CT negative for intracranial hemorrhage or mass effect. Patient has normal CBC, normal CMP, d-dimer and troponin are negative. Given the patient's risk factors, we'll keep him in observation for serial cardiac enzymes, telemetry, echo, case discussed with Dr. Patel will accept admission. Diagnosis: Chest pain - Lab Data Result diagrams: 09/27/18 10:54 09/27/18 10:54 Lab Results 09/27/18 09/27/18 09/27/18 Range/Units 10:54 10:54 10:54 WBC 9.0 (3.8-10.6) k/uL RBC 5.10 (4.30-5.90) m/uL Hgb 15.6 (13.0-17.5) gm/dL Hct 47.5 (39.0-53.0) % MCV 93.0 (80.0-100.0) fL MCH 30.6 (25.0-35.0) pg MCHC 32.9 (31.0-37.0) g/dL RDW 12.8 (11.5-15.5) % Plt Count 261 (150-450) k/uL Neutrophils % 57 % Lymphocytes % 38 % Monocytes % 3 % Eosinophils % 1 % Basophils % 1 % Neutrophils # 5.1 (1.3-7.7) k/uL Lymphocytes # 3.4 (1.0-4.8) k/uL Monocytes # 0.3 (0-1.0) k/uL Eosinophils # 0.1 (0-0.7) k/uL Basophils # 0.1 (0-0.2) k/uL PT (9.0-12.0) sec INR (<1.2) APTT (22.0-30.0) sec D-Dimer (<0.60) mg/L FEU Sodium 141 (137-145) mmol/L Potassium 4.0 (3.5-5.1) mmol/L Chloride 106 (98-107) mmol/L Carbon Dioxide 27 (22-30) mmol/L Anion Gap 8 mmol/L BUN 17 (9-20) mg/dL Creatinine 1.13 (0.66-1.25) mg/dL Est GFR (CKD-EPI)AfAm 86 (>60 ml/min/1.73 sqM) Est GFR (CKD-EPI)NonAf 74 (>60 ml/min/1.73 sqM) Glucose 120 H (74-99) mg/dL Calcium 9.3 (8.4-10.2) mg/dL Magnesium 1.7 (1.6-2.3) mg/dL Total Bilirubin 1.1 (0.2-1.3) mg/dL AST 51 (17-59) U/L ALT 118 H (21-72) U/L Alkaline Phosphatase 72 (38-126) U/L Total Creatine Kinase 87 (55-170) U/L CK-MB (CK-2) 1.3 (0.0-2.4) ng/mL CK-MB (CK-2) Rel Index 1.5 Troponin I <0.012 (0.000-0.034) ng/mL Total Protein 7.0 (6.3-8.2) g/dL Albumin 4.3 (3.5-5.0) g/dL 09/27/18 Range/Units 10:54 WBC (3.8-10.6) k/uL RBC (4.30-5.90) m/uL Hgb (13.0-17.5) gm/dL Hct (39.0-53.0) % MCV (80.0-100.0) fL MCH (25.0-35.0) pg MCHC (31.0-37.0) g/dL RDW (11.5-15.5) % Plt Count (150-450) k/uL Neutrophils % % Lymphocytes % % Monocytes % % Eosinophils % % Basophils % % Neutrophils # (1.3-7.7) k/uL Lymphocytes # (1.0-4.8) k/uL Monocytes # (0-1.0) k/uL Eosinophils # (0-0.7) k/uL Basophils # (0-0.2) k/uL PT 10.5 (9.0-12.0) sec INR 1.0 (<1.2) APTT 23.4 (22.0-30.0) sec D-Dimer <0.17 (<0.60) mg/L FEU Sodium (137-145) mmol/L Potassium (3.5-5.1) mmol/L Chloride (98-107) mmol/L Carbon Dioxide (22-30) mmol/L Anion Gap mmol/L BUN (9-20) mg/dL Creatinine (0.66-1.25) mg/dL Est GFR (CKD-EPI)AfAm (>60 ml/min/1.73 sqM) Est GFR (CKD-EPI)NonAf (>60 ml/min/1.73 sqM) Glucose (74-99) mg/dL Calcium (8.4-10.2) mg/dL Magnesium (1.6-2.3) mg/dL Total Bilirubin (0.2-1.3) mg/dL AST (17-59) U/L ALT (21-72) U/L Alkaline Phosphatase (38-126) U/L Total Creatine Kinase (55-170) U/L CK-MB (CK-2) (0.0-2.4) ng/mL CK-MB (CK-2) Rel Index Troponin I (0.000-0.034) ng/mL Total Protein (6.3-8.2) g/dL Albumin (3.5-5.0) g/dL Disposition Clinical Impression: Chest pain Disposition: ADMITTED IP TO THIS [facility] Condition: Stable Is patient prescribed a controlled substance at d/c from ED?: No Referrals: Jameson Tsang MD [Primary Care Provider] - 1-2 days Decision to Admit Reason: Admit from EC Decision Date: 09/27/18 Decision Time: 13:09
--- NOTE | 2018-09-27 11:15 | CT ---
EXAMINATION TYPE: CT brain wo con DATE OF EXAM: 09/27/2018 COMPARISON: 09/11/2013 HISTORY: Right sided arm numbness with headache and weakness CT DLP: 1142.[address] of the brain was performed. The ventricles, basal cisterns and sulci overlying the cerebral convexities demonstrate mild enlargem ent. There is no evidence for intracranial hemorrhage or sulcal effacement. There is decreased attenuation about the periventricular white matter and deep white matter of both c erebral hemispheres, compatible with chronic small vessel ischemia. Differential diagnosis does inclu de demyelination. No mass effects are seen.No midline shift. Osseous calvarium is intact. If symptoms persist consider MRI. IMPRESSION: 1. Age related atrophic and chronic small vessel ischemic change without acute intracranial process s een at this time.
[2018-09-27 11:16] LABS: Basophils # (A) 0.1 k/uL (0-0.2); Basophils % (A) 1 %; Eosinophils # (A) 0.1 k/uL (0-0.7); Eosinophils % (A) 1 %; HCT 47.5 % (39.0-53.0); HGB 15.6 gm/dL (13.0-17.5); Lymphocytes # (A) 3.4 k/uL (1.0-4.8); Lymphocytes % (A) 38 %; MCH 30.6 pg (25.0-35.0); MCHC 32.9 g/dL (31.0-37.0); Mean Platelet Volume 6.9; Monocytes # (A) 0.3 k/uL (0-1.0); Monocytes % (A) 3 %; Neutrophils # (A) 5.1 k/uL (1.3-7.7); Neutrophils % (A) 57 %; Platelet Count 261 k/uL (150-450); RDW 12.8 % (11.5-15.5)
[2018-09-27 11:23] LABS: Albumin 4.3 g/dL (3.5-5.0); Calcium 9.3 mg/dL (8.4-10.2); Magnesium 1.7 mg/dL (1.6-2.3); Total Bilirubin 1.1 mg/dL (0.2-1.3)
[2018-09-27 11:26] LABS: Partial Thromboplastin Time 23.4 sec (22.0-30.0); Prothrombin Time 10.5 sec (9.0-12.0)
[2018-09-27 11:35] LABS: Creatine Kinase 87 U/L (55-170)
--- NOTE | 2018-09-27 11:35 | XR ---
EXAMINATION TYPE: XR chest 2V DATE OF EXAM: 09/27/2018 COMPARISON: NONE HISTORY: Shortness of breath TECHNIQUE: Frontal and lateral views of the chest are obtained. FINDINGS: Scattered senescent parenchymal changes noted. Hyperinflation compatible with COPD. No evidence for infiltrate. No evidence for atelectasis. Heart size is stable. Mediastinal structures are stable and grossly unremarkable. No evidence for hilar prominence. Degenerative changes dorsal spine. IMPRESSION: 1. No evidence for acute pulmonary disease.
[2018-09-27] MEDS ORDERED: hydrALAZINE HCL 20 MG/ML 1 ML VIAL IVP STA (11:43)
[2018-09-27 11:48] LABS: Creatine Kinase MB 1.3 ng/mL (0.0-2.4); Troponin I <0.012 ng/mL (0.000-0.034)
[2018-09-27 11:59] LABS: D-Dimer <0.17 mg/L FEU (<0.60)
[2018-09-27] MEDS ORDERED: ONDANSETRON 4 MG/2 ML VIAL IVP PRN (13:03)
[2018-09-27] MEDS ORDERED: ACETAMINOPHEN TAB 325 MG TAB PO PRN (13:03)
[2018-09-27] MEDS ORDERED: MORPHINE SULFATE 4 MG/ML SYRINGE IV PRN (13:03)
[2018-09-27] MEDS ORDERED: NALOXONE 0.4 MG/ML 1 ML VIAL IV PRN (13:03)
[2018-09-27] MEDS ORDERED: ASPIRIN 325 MG TAB PO STA (13:03)
[2018-09-27] MEDS ORDERED: SODIUM CHLORIDE 0.9% 1,000 ML IV SCH (13:15)
[2018-09-27 17:20] LABS: Creatine Kinase 76 U/L (55-170)
[2018-09-27 17:33] LABS: Troponin I <0.012 ng/mL (0.000-0.034)
[2018-09-27] MEDS ORDERED: ATORVASTATIN 40 MG TAB PO SCH (21:00)
[2018-09-27] MEDS: METOPROLOL TARTRATE 25 MG TAB PO SCH (21:21)
[2018-09-27 22:59] LABS: Creatine Kinase 59 U/L (55-170)
[2018-09-27 23:11] LABS: Creatine Kinase MB 0.6 ng/mL (0.0-2.4); Troponin I <0.012 ng/mL (0.000-0.034)
[2018-09-28] MEDS: LEVOTHYROXINE 100 MCG TAB PO SCH ×2 (06:00→06:01)
[2018-09-28 07:49] VITALS: RESP 18
[2018-09-28] MEDS ORDERED: amLODIPine 10 MG TAB PO SCH (09:00)
[2018-09-28] MEDS ORDERED: ASPIRIN 81 MG PO SCH (09:00)
[2018-09-28] MEDS ORDERED: LISINOPRIL 5 MG TAB PO SCH (09:00)
[2018-09-28] MEDS ORDERED: LISINOPRIL 20 MG TAB PO SCH (09:00)
[2018-09-28] MEDS: METOPROLOL TARTRATE 25 MG TAB PO SCH (09:10)
--- NOTE | 2018-09-28 10:22 | ECHOF ---
Referral Reason:cp MEASUREMENTS -------- HEIGHT: 182.9 cm WEIGHT: 90.7 kg BP: IVSd: 1.3 cm (0.6 - 1.1) LVIDd: 4.3 cm (3.9 - 5.3) LVPWd: 1.1 cm (0.6 - 1.1) IVSs: 1.7 cm LVIDs: 3.4 cm LVPWs: 1.3 cm LA Diam: 3.4 cm (2.7 - 3.8) LAESV Index (A-L): 25.11 ml/m Ao Diam: 4.0 cm (2.0 - 3.7) AV Cusp: 2.0 cm (1.5 - 2.6) LA Diam: 3.8 cm (2.7 - 3.8) MV EXCURSION: 16.594 mm (> 18.000) MV EF SLOPE: 88 mm/s (70 - 150) EPSS: 0.7 cm MV E Jefferson: 0.69 m/s MV DecT: 261 ms MV A Jefferson: 0.84 m/s MV E/A Ratio: 0.82 RAP: 5.00 mmHg RVSP: 14.88 mmHg FINDINGS -------- Sinus rhythm. This was a technically good study. The left ventricular size is normal. There is mild concentric left ventricular hypertrophy. Overa ll left ventricular systolic function is low-normal with, an EF between 50 - 55 %. Basal inferior L V wall motion is hypokinetic. The right ventricle is normal in size. The left atrial size is normal. The right atrial size is normal. The aortic valve is trileaflet, and appears structurally normal. No aortic stenosis or regurgitation. Mild mitral annular calcification present. Mild mitral regurgitation is present. [id number] tricuspid regurgitation present. There is no evidence of pulmonary hypertension. The right ventricular systolic pressure, as measured by Doppler, is 14.88mmHg. There is no pulmonic regurgitation present. The aortic root size is normal. There is no pericardial effusion. CONCLUSIONS -------- 1. The left ventricular size is normal. 2. There is mild concentric left ventricular hypertrophy. 3. Overall left ventricular systolic function is low-normal with, an EF between 50 - 55 %. 4. Basal inferior LV wall motion is hypokinetic. 5. The right ventricle is normal in size. 6. The left atrial size is normal. 7. The right atrial size is normal. 8. The aortic valve is trileaflet, and appears structurally normal. No aortic stenosis or regurgitati on. 9. Mild mitral annular calcification present. 10. Mild mitral regurgitation is present. 11. Vecx-hz-qfoczgut tricuspid regurgitation present. 12. There is no evidence of pulmonary hypertension. 13. The right ventricular systolic pressure, as measured by Doppler, is 14.88mmHg. 14. There is no pulmonic regurgitation present. 15. The aortic root size is normal. 16. There is no pericardial effusion. CONSULTANT INTERN: Salome Jones RDCS
--- NOTE | 2018-09-28 11:10 | P.CRDCN ---
History of Present Illness History of present illness: This pleasant 53-year-old male past medical history significant for coronary artery disease status post PCI, hypertension, dyslipidemia, gastroesophageal reflux disease and former nicotine dependence. He follows in the office Dr. Kelsey. We've been asked to see him in consultation for symptoms of chest discomfort and hypertension. He states yesterday while he was walking to the grocery store he started feeling numbness and tingling in both of his lower arms with associated chest pain and tightening across his chest. Upon arrival to ED his blood pressure was 170/115 heart rate 83. He states he took his prescribed medications that morning and is compliant. He recently saw Dr. Kelsey in the office and was advised to keep a blood pressure log. His readings were reviewed and reveal pressures around 140-150/90. Currently he is sitting up in bed in no acute distress. He denies any ongoing chest tightness. He was given IV hydralazine in ED. Repeat blood pressure this morning remained elevated at 162/106. Echocardiogram obtained reveals preserved left ventricular systolic function with ejection fraction 50-50%, basal inferior wall motion hypokinesia, mild MR and mild to moderate TR noted. CT brain reveals a paced related atrophic and chronic small vessel ischemic change without acute intracranial process. Chest x-ray is negative for an acute cardiopulmonary process with evidence of hyperinflation suggestive of COPD. EKG reveals sinus mechanism with incomplete right bundle branch block with LVH. He underwent cardiac catheterization in March 2017. He was found to have disease in the distal RCA, and proximal OM. He underwent successful PCI 3. Current cardiac medications include lisinopril 5 mg daily, metoprolol 25 mg twice a day, atorvastatin 40 mg daily and aspirin 81 mg daily. At the time of my exam: CONSTITUTIONAL: Denies fever. Denies chills. EYES: Denies blurred vision. Denies vision changes. Denies eye pain. EARS, NOSE, MOUTH & THROAT: Denies headache. Denies sore throat. Denies ear pain. CARDIOVASCULAR: Denies chest pain. Denies shortness of breath. Denies orthopnea. Denies PND. Denies palpitations. RESPIRATORY: Denies cough. GASTROINTESTINAL: Denies abdominal pain. Denies diarrhea. Denies constipation. Denies nausea. Denies vomiting. MUSCULOSKELETAL: Denies myalgias. INTEGUMENTARY: Denies pruitis. Denies rash. NEUROLOGIC: Denies numbness. Denies tingling. Denies weakness. PSYCHIATRIC: Denies anxiety. Denies depression. ENDOCRINE: Denies fatigue. Denies weight change. Denies polydipsia. Denies polyurina. GENITOURINARY: Denies burning, hematuria or urgency with micturation. HEMATOLOGIC: Denies history of anemia. Denies bleeding. Blood pressure 162/106 heart rate 79 afebrile maintaining oxygen saturation on room air GENERAL: This is a 53-year-old male in no apparent distress at the time of my examination. HEENT: Head is atraumatic, normocephalic. Pupils are equal, round. Sclerae anicteric. Conjunctivae are clear. Mucous membranes of the mouth are moist. Neck is supple. There is no jugular venous distention. No carotid bruit is heard. LUNGS: Clear to auscultation no wheezes, rales or rhonchi. No chest wall tenderness is noted on palpation or with deep breathing. HEART: Regular rate and rhythm without murmurs, rubs or gallops. S1 and S2 heard. ABDOMEN: Soft, nontender. Bowel sounds are heard. No organomegaly noted. EXTREMITIES: No evidence of peripheral edema and no calf tenderness noted. VASCULAR: Radial and dorsalis pedis pulses palpated, no evidence of clubbing. NEUROLOGIC: Patient is awake, alert and oriented x3. ASSESSMENT Chest pain, atypical for angina. An acute coronary event has ruled out. Hypertensive emergency Paresthesia Dyslipidemia History of coronary artery disease status post PCI March 2017 PLAN An acute coronary event has been ruled out. Increase lisinopril to 20 mg daily and add amlodipine 10 mg daily to his regimen. Continue to watch blood pressure and ensure he is tolerant of these adjustments. Increase activity and ambulation in the halls and assess for ongoing exertional chest pain. Once blood pressure is controlled, recommend repeat stress testing as an outpatient. Follow up with Dr. Kelsey upon discharge. Thank you kindly for this consultation. Nurse Practitioner note has been reviewed, I agree with a documented findings and plan of care. Patient was seen and examined. Past Medical History Past Medical History: Cancer, GERD/Reflux, Hyperlipidemia, Hypertension, Thyroid Disorder Additional Past Medical History / Comment(s): 3 stents, HX THYROID CANCER, hx. colon polyps, occasional blood in stool, hx. hemorrhoids, diverticulosis, hiatal hernia. HX (FAP) FAMILIAL ADENOMATOUS POLYPOSIS. CRUZ'S ESOPHAGUS History of Any Multi-Drug Resistant Organisms: None Reported Past Surgical History: Heart Catheterization With Stent Additional Past Surgical History / Comment(s): THYROIDECTOMY, EGD, COLONOSCOPY Past Anesthesia/Blood Transfusion Reactions: No Reported Reaction Date of Last Stent Placement:: 2016 Smoking Status: Former smoker - Past Family History Father Family Medical History: Cancer Additional Family Medical History / Comment(s): MELENOMA Mother Family Medical History: Pulmonary Embolus Medications and Allergies Home Medications Medication Instructions Recorded Confirmed Type Glucosamine Sulfate 1,500 mg PO BID PRN 09/10/16 09/27/18 History Levothyroxine Sodium [Synthroid] 200 mcg PO DAILY 09/10/16 09/27/18 History Omeprazole 20 mg PO BID 09/10/16 09/27/18 History Multivitamin [Men's Multi-Vitamin] 1 tab PO DAILY 03/27/17 09/27/18 History Aspirin 81 mg PO DAILY 04/15/17 09/27/18 History Metoprolol Tartrate 25 mg PO BID 04/16/17 09/27/18 History Atorvastatin [Lipitor] 40 mg PO HS tab 04/17/17 09/27/18 Rx Lisinopril [Zestril] 20 mg PO DAILY #30 tab 09/28/18 Rx amLODIPine [Norvasc] 10 mg PO HS #30 tablet 09/28/18 Rx Allergies Allergy/AdvReac Type Severity Reaction Status Date / Time No Known Allergies Allergy Verified 09/27/18 11:51 Physical Exam Vitals: Vital Signs Temp Pulse Pulse Resp BP BP BP 09/28/18 07:45 98.5 F 79 18 162/106 09/28/18 04:00 98.4 F 72 16 121/80 09/28/18 03:25 65 16 09/27/18 23:57 98.8 F 66 16 138/86 09/27/18 23:54 96 17 09/27/18 20:00 18 09/27/18 19:58 99.0 F 101 H 16 151/96 09/27/18 14:50 98.8 F 76 18 166/96 09/27/18 14:30 78 20 144/106 09/27/18 14:00 80 18 160/105 09/27/18 13:30 80 13 143/100 09/27/18 13:00 74 9 L 140/107 Pulse Ox 09/28/18 07:45 96 09/28/18 04:00 98 09/28/18 03:25 09/27/18 23:57 96 09/27/18 23:54 09/27/18 20:00 09/27/18 19:58 92 L 09/27/18 14:50 97 09/27/18 14:30 09/27/18 14:00 09/27/18 13:30 98 09/27/18 13:00 Intake and Output 09/27/18 09/28/18 09/28/18 22:59 06:59 14:59 Other: Voiding Method Toilet Toilet Toilet # Voids 1 1 Results 09/27/18 10:54 09/27/18 10:54 Cardiac Enzymes 09/27/18 09/27/18 09/27/18 Range/Units 10:54 10:54 16:39 AST 51 (17-59) U/L CK-MB (CK-2) 1.3 1.0 (0.0-2.4) ng/mL Troponin I <0.012 <0.012 (0.000-0.034) ng/mL 09/27/18 Range/Units 22:11 AST (17-59) U/L CK-MB (CK-2) 0.6 (0.0-2.4) ng/mL Troponin I <0.012 (0.000-0.034) ng/mL Coagulation 09/27/18 Range/Units 10:54 PT 10.5 (9.0-12.0) sec APTT 23.4 (22.0-30.0) sec CBC 09/27/18 Range/Units 10:54 WBC 9.0 (3.8-10.6) k/uL RBC 5.10 (4.30-5.90) m/uL Hgb 15.6 (13.0-17.5) gm/dL Hct 47.5 (39.0-53.0) % Plt Count 261 (150-450) k/uL Comprehensive Metabolic Panel 09/27/18 Range/Units 10:54 Sodium 141 (137-145) mmol/L Potassium 4.0 (3.5-5.1) mmol/L Chloride 106 (98-107) mmol/L Carbon Dioxide 27 (22-30) mmol/L BUN 17 (9-20) mg/dL Creatinine 1.13 (0.66-1.25) mg/dL Glucose 120 H (74-99) mg/dL Calcium 9.3 (8.4-10.2) mg/dL AST 51 (17-59) U/L ALT 118 H (21-72) U/L Alkaline Phosphatase 72 (38-126) U/L Total Protein 7.0 (6.3-8.2) g/dL Albumin 4.3 (3.5-5.0) g/dL Current Medications Generic Name Dose Route Start Last Admin Trade Name Freq PRN Reason Stop Dose Admin Acetaminophen 650 mg 09/27/18 13:03 Tylenol Tab PO Q6HR PRN Mild Pain or Fever > 100.5 Amlodipine Besylate 10 mg 09/28/18 09:00 09/28/18 09:10 Norvasc PO 10 mg DAILY NED Administration Aspirin 81 mg 09/28/18 09:00 09/28/18 09:10 Aspirin PO 81 mg DAILY NED Administration Atorvastatin Calcium 40 mg 09/27/18 21:00 09/27/18 21:21 Lipitor PO 40 mg HS NED Administration Sodium Chloride 1,000 mls @ 20 mls/hr 09/27/18 13:15 09/27/18 14:47 Saline 0.9% IV Not Given .Q24H [facility] Levothyroxine Sodium 200 mcg 09/28/18 06:30 09/28/18 06:01 Synthroid PO 200 mcg DAILY@0630 NED Administration Lisinopril 20 mg 09/28/18 09:00 09/28/18 09:10 Zestril PO 20 mg DAILY NED Administration Metoprolol Tartrate 25 mg 09/27/18 21:00 09/28/18 09:10 Lopressor PO 25 mg BID NED Administration Morphine Sulfate 4 mg 09/27/18 13:03 Morphine Sulfate (Inj) IV Q4HR PRN Severe Pain Naloxone HCl 0.2 mg 09/27/18 13:03 Narcan IV Q2M PRN Opioid Reversal Ondansetron HCl 4 mg 09/27/18 13:03 Zofran IVP Q8HR PRN Nausea And Vomiting Intake and Output 09/27/18 09/28/18 09/28/18 22:59 06:59 14:59 Other: Voiding Method Toilet Toilet Toilet # Voids 1 1 09/27/18 10:54 09/27/18 10:54
[2018-09-28 12:19] VITALS: TEMP 98.2
[2018-09-28 14:00] VITALS: BP 109/75; PULSE 75
--- NOTE | 2018-09-28 15:31 | P.HPIM ---
History of Present Illness H&P Date: 09/28/18 Chief Complaint: Right-sided chest pressure, numbness This is 53-year-old male patient of Dr. Tsang and Dr. Kelsey with past medical history significant for coronary artery disease status post PCI in April 2017, hypertension, dyslipidemia, gastroesophageal reflux disease and former nicotine dependence. Patient was recently seen about one month ago with Dr. Kelsey and his blood pressure was elevated at 140/90. Patient states he has been keeping a diary of his blood pressure readings for the past 3 weeks and was to return for a recheck. Most blood pressures seem to be in the normal range with only an occasional high level. He follows with Dr. Tsang on an every 6 month schedule. Patient states that he was at [place] yesterday and developed numbness on the left side of his face, tingling in the right side and right forearm without any noted weakness. He also had right sided chest pain. He also has some chronic problems with neck pain. He came into [facility] emergency center for evaluation. Initial 170/115 heart rate 83. He was given IV hydralazine. Repeat blood pressure this morning remained elevated at 162/106. Echocardiogram obtained reveals ejection fraction 50-50%, basal inferior wall motion hypokinesia, mild MR and mild to moderate TR noted. CT brain reveals a paced related atrophic and chronic small vessel ischemic change without acute intracranial process. Chest x-ray is negative for an acute cardiopulmonary process with evidence of hyperinflation suggestive of COPD. EKG reveals sinus mechanism with incomplete right bundle branch block with LVH. Patient was placed in the observation unit and cardiology consult requested. Patient has been evaluated by cardiology and blood pressure medications have been adjusted. Once blood pressure is under control, patient will be discharged home today in stable condition. Plan is for stress testing as an outpatient. Discharge Medication List Glucosamine Sulfate 1,500 mg PO BID PRN 09/10/16 [History] Levothyroxine Sodium [Synthroid] 200 mcg PO DAILY 09/10/16 [History] Omeprazole 20 mg PO BID 09/10/16 [History] Multivitamin [Men's Multi-Vitamin] 1 tab PO DAILY 03/27/17 [History] Aspirin 81 mg PO DAILY 04/15/17 [History] Metoprolol Tartrate 25 mg PO BID 04/16/17 [History] Atorvastatin [Lipitor] 40 mg PO HS tab 04/17/17 [Rx] Lisinopril [Zestril] 20 mg PO DAILY #30 tab 09/28/18 [Rx] amLODIPine [Norvasc] 10 mg PO HS #30 tablet 09/28/18 [Rx] Review of Systems All systems: negative Constitutional: Denies chills, Denies fatigue, Denies fever, Denies weakness Eyes: denies blurred vision, denies pain Ears, nose, mouth and throat: Denies dysphagia, Denies headache, Denies nasal congestion, Denies sore throat, Denies vertigo Cardiovascular: Reports chest pain, Denies edema, Denies leg edema, Denies palpitations, Denies shortness of breath, Denies syncope Respiratory: Denies cough, Denies cough with sputum, Denies dyspnea, Denies excessive sputum, Denies hemoptysis, Denies home oxygen, Denies wheezing Gastrointestinal: Denies abdominal pain, Denies diarrhea, Denies loss of appetite, Denies nausea, Denies vomiting Genitourinary: Denies dysuria Musculoskeletal: Reports arm numbness/tingling, Denies frequent falls, Denies gait dysfunction, Denies muscle weakness, Denies myalgias, Denies shooting arm pain, Denies shooting leg pain Integumentary: Denies pruritus, Denies rash, Denies wounds Neurological: Denies aphasia, Denies change in mentation, Denies confusion, Denies gait dysfunction, Denies headaches, Denies numbness, Denies seizures, Denies weakness Psychiatric: Denies anxiety, Denies depression Endocrine: Denies fatigue, Denies weight change Past Medical History Past Medical History: Cancer, GERD/Reflux, Hyperlipidemia, Hypertension, Thyroid Disorder Additional Past Medical History / Comment(s): 3 stents, HX THYROID CANCER, hx. colon polyps, occasional blood in stool, hx. hemorrhoids, diverticulosis, hiatal hernia. HX (FAP) FAMILIAL ADENOMATOUS POLYPOSIS. CRUZ'S ESOPHAGUS History of Any Multi-Drug Resistant Organisms: None Reported Past Surgical History: Heart Catheterization With Stent Additional Past Surgical History / Comment(s): THYROIDECTOMY, EGD, COLONOSCOPY Past Anesthesia/Blood Transfusion Reactions: No Reported Reaction Date of Last Stent Placement:: 2016 Smoking Status: Former smoker - Past Family History Father Family Medical History: Cancer Additional Family Medical History / Comment(s): MELENOMA Mother Family Medical History: Pulmonary Embolus Medications and Allergies Home Medications Medication Instructions Recorded Confirmed Type Glucosamine Sulfate 1,500 mg PO BID PRN 09/10/16 09/27/18 History Levothyroxine Sodium [Synthroid] 200 mcg PO DAILY 09/10/16 09/27/18 History Omeprazole 20 mg PO BID 09/10/16 09/27/18 History Multivitamin [Men's Multi-Vitamin] 1 tab PO DAILY 03/27/17 09/27/18 History Aspirin 81 mg PO DAILY 04/15/17 09/27/18 History Metoprolol Tartrate 25 mg PO BID 04/16/17 09/27/18 History Atorvastatin [Lipitor] 40 mg PO HS tab 04/17/17 09/27/18 Rx Lisinopril [Zestril] 20 mg PO DAILY #30 tab 09/28/18 Rx amLODIPine [Norvasc] 10 mg PO HS #30 tablet 09/28/18 Rx Allergies Allergy/AdvReac Type Severity Reaction Status Date / Time No Known Allergies Allergy Verified 09/27/18 11:51 Physical Exam Vitals: Vital Signs Temp Pulse Pulse Resp BP BP BP 09/28/18 07:45 98.5 F 79 18 162/106 09/28/18 04:00 98.4 F 72 16 121/80 09/28/18 03:25 65 16 09/27/18 23:57 98.8 F 66 16 138/86 09/27/18 23:54 96 17 09/27/18 20:00 18 09/27/18 19:58 99.0 F 101 H 16 151/96 09/27/18 14:50 98.8 F 76 18 166/96 09/27/18 14:30 78 20 144/106 09/27/18 14:00 80 18 160/105 09/27/18 13:30 80 13 143/100 09/27/18 13:00 74 9 L 140/107 09/27/18 10:38 98 F 83 18 170/115 Pulse Ox 09/28/18 07:45 96 09/28/18 04:00 98 09/28/18 03:25 09/27/18 23:57 96 09/27/18 23:54 09/27/18 20:00 09/27/18 19:58 92 L 09/27/18 14:50 97 09/27/18 14:30 09/27/18 14:00 09/27/18 13:30 98 09/27/18 13:00 09/27/18 10:38 98 Intake and Output 09/27/18 09/28/18 09/28/18 22:59 06:59 14:59 Other: Voiding Method Toilet Toilet # Voids 1 1 Gen: This is a 53-year-old male. He is resting in bed and appears to be comfortable and in no acute distress. HEENT: Head is atraumatic, normocephalic. Pupils equal, round. Sclerae is anicteric. NECK: Supple. No JVD. No lymphadenopathy. No thyromegaly. LUNGS: Clear to auscultation. No wheezes or rhonchi. No intercostal retractions. HEART: Regular rate and rhythm. No murmur. ABDOMEN: Soft. Bowel sounds are present. No masses. No tenderness. EXTREMITIES: No pedal edema. No calf tenderness. Dorsalis pedis +2 bilaterally. NEUROLOGICAL: Patient is awake, alert and oriented x3. Cranial nerves 2 through 12 are grossly intact. No focal/lateralized weakness noted Results CBC & Chem 7: 09/27/18 10:54 09/27/18 10:54 Labs: Abnormal Lab Results - Last 24 Hours (Table) 09/27/18 Range/Units 10:54 Glucose 120 H (74-99) mg/dL ALT 118 H (21-72) U/L Thrombosis Risk Factor Assmnt - Choose All That Apply Any of the Below Risk Factors Present?: Yes Each Factor Represents 1 point: Age 41-60 years, Obesity (BMI >25) Thrombosis Risk Factor Assessment Total Risk Factor Score: 2 Thrombosis Risk Factor Assessment Level: Low Risk Assessment and Plan Plan: 1. Chest pain, acute coronary syndrome ruled out. 2. Hypertensive emergency requiring IV medication. 3. Paresthesias in the face and right arm. 4. History of thyroid cancer, stable. 5. History of coronary artery disease status post stenting in 2017. 6. History of familiar adenomatosis polyposis, hiatal hernia, Cruz's esophagus, stable. 7. Hyperlipidemia. PatienPlaced on the observation unit Discharge plan: home Impression and plan of care have been directed as dictated by the signing physician. Jumana Santacruz nurse practitioner acting as scribe for signing physician.
== END 2018-09-28 15:40 | disposition home or self-care (01) ==
LOC: EC 10:36 → 1SOBS 13:05
PROVIDERS: ADMIT Family Medicine; ATTEND Family Medicine
DX: R07.89 Other chest pain (principal); I16.1 Hypertensive emergency; I10 Essential (primary) hypertension; I45.10 Unspecified right bundle-branch block; R20.0 Anesthesia of skin; R20.2 Paresthesia of skin; I25.10 Atherosclerotic heart disease of native coronary artery without angina pectoris; K21.9 Gastro-esophageal reflux disease without esophagitis; E78.5 Hyperlipidemia, unspecified; E07.9 Disorder of thyroid, unspecified; K22.70 Barrett's esophagus without dysplasia; E89.0 Postprocedural hypothyroidism; G89.29 Other chronic pain; M54.2 Cervicalgia; K64.9 Unspecified hemorrhoids; K57.90 Diverticulosis of intestine, part unspecified, without perforation or abscess without bleeding; K44.9 Diaphragmatic hernia without obstruction or gangrene; E66.9 Obesity, unspecified; Z68.26 Body mass index [BMI] 26.0-26.9, adult; Z95.5 Presence of coronary angioplasty implant and graft; Z79.890 Hormone replacement therapy; Z79.82 Long term (current) use of aspirin; Z79.899 Other long term (current) drug therapy; Z85.850 Personal history of malignant neoplasm of thyroid; Z86.010 Personal history of colon polyps; Z87.891 Personal history of nicotine dependence; Z80.8 Family history of malignant neoplasm of other organs or systems; Z82.49 Family history of ischemic heart disease and other diseases of the circulatory system
CPT/HCPCS: 96374; 99285; 36415; 93005; 93306; 85379; 80053; 82550; 82553; 83735; 84484; 85025; 85610; 85730; 71046; 70450; G0378 ×2; J0360

== ENCOUNTER → 2018-10-13 | Outpatient (CLI) | payer BC ==
[2018-10-13 16:22] LABS: ALT 69 U/L (10-49); AST 42 U/L (14-35); Albumin/Globulin Ratio 2.29 (1.60-3.17); Alkaline Phosphatase 73 U/L (41-126); Calcium 8.8 mg/dL (8.7-10.3); Carbon Dioxide 30.1 mmol/L (21.6-31.8); Chloride 106 mmol/L (96-109); Cholesterol 110 mg/dL (0-200); Globulin 1.7 g/dL (1.6-3.3); Glucose 109 mg/dL (70-110); Potassium 4.2 mmol/L (3.5-5.5); Sodium 140 mmol/L (135-145); Total Protein 5.6 g/dL (6.2-8.2); Triglycerides <50.0 mg/dL (0.0-149.0); VLDL Calculation 9.98 mg/dL (5.00-40.00)
[2018-10-13 17:36] LABS: Hemoglobin A1C 5.5 % (4.0-6.0)
== END | disposition home or self-care (01) ==
LOC: LABWHC1 08:43
PROVIDERS: ATTEND Internal Medicine Geriatric Medicine
DX: Z00.00 Encounter for general adult medical examination without abnormal findings (principal); I25.119 Atherosclerotic heart disease of native coronary artery with unspecified angina pectoris; R73.9 Hyperglycemia, unspecified; N40.0 Benign prostatic hyperplasia without lower urinary tract symptoms; E03.9 Hypothyroidism, unspecified
CPT/HCPCS: 36415; 80053; 80061; 83036; 84153; 84439; 84443

== ENCOUNTER → 2019-03-24 | Outpatient (CLI) | payer BC ==
[2019-03-24 18:45] LABS: African American GFR (CKD) 99.1 (60.0-200.0); Albumin/Globulin Ratio 2.11 (1.60-3.17); Anion Gap 5.5 mmol/L (4.00-12.00); Carbon Dioxide 29.5 mmol/L (21.6-31.8); Globulin 1.9 g/dL (1.6-3.3); Potassium 4.4 mmol/L (3.5-5.5); Total Bilirubin 0.8 mg/dL (0.2-1.2); Total Protein 5.9 g/dL (6.2-8.2)
[2019-03-24 18:46] LABS: LDL Cholesterol,Calculated 35.2 mg/dL (0.0-131.0); VLDL Calculation 10.8 mg/dL (5.00-40.00)
== END ==
LOC: LABWHC1 10:04
PROVIDERS: ATTEND Internal Medicine Interventional Cardiology
DX: E78.2 Mixed hyperlipidemia (principal)
CPT/HCPCS: 36415; 80053; 80061

== ENCOUNTER → 2019-10-05 | Outpatient (CLI) | payer BC ==
[2019-10-05 16:07] LABS: African American GFR (CKD) 98.5 (60.0-200.0); Albumin 4.3 g/dL (3.80-4.90); Albumin/Globulin Ratio 2.05 (1.60-3.17); Anion Gap 4.6 mmol/L (4.00-12.00); Calcium 9.6 mg/dL (8.7-10.3); Carbon Dioxide 31.4 mmol/L (21.6-31.8); Chol/HDL Ratio 1.79; Globulin 2.1 g/dL (1.6-3.3); LDL Cholesterol,Calculated 48.2 mg/dL (0.0-131.0); Non-African American GFR(CKD) 84.9 (60.0-200.0); Potassium 4.3 mmol/L (3.5-5.5); Total Bilirubin 0.7 mg/dL (0.2-1.2); Total Protein 6.4 g/dL (6.2-8.2); VLDL Calculation 15.8 mg/dL (5.00-40.00)
== END | disposition home or self-care (01) ==
LOC: LABWHC1 10:32
PROVIDERS: ATTEND Internal Medicine Interventional Cardiology
DX: E78.2 Mixed hyperlipidemia (principal)
CPT/HCPCS: 36415; 80053; 80061

== ENCOUNTER → 2019-10-18 | Outpatient (CLI) | payer BC ==
[2019-10-18 16:50] LABS: T4, Free (Free Thyroxine) 1.9 ng/dL (0.80-1.80)
== END | disposition home or self-care (01) ==
LOC: LABWHC1 08:32
PROVIDERS: ATTEND Internal Medicine Geriatric Medicine
DX: N40.0 Benign prostatic hyperplasia without lower urinary tract symptoms (principal); E03.9 Hypothyroidism, unspecified
CPT/HCPCS: 36415; 84153; 84439; 84443

== ENCOUNTER 2020-03-13 21:57 | Emergency (ER) | payer BC ==
[2020-03-13 22:04] VITALS: TEMP 98.7
[2020-03-13] MEDS ORDERED: diphenhydrAMINE 50 MG/ML 1 ML VIAL IM STA (22:22)
[2020-03-13] MEDS ORDERED: methylPREDNISolone SOD SUCCI 125 MG/2 ML VIAL IM ONE (22:22)
[2020-03-13] MEDS ORDERED: FAMOTIDINE 20 MG TAB PO STA (22:22)
--- NOTE | 2020-03-13 23:07 | ED ---
General Adult HPI - General Chief complaint: Skin/Abscess/Foreign Body Stated complaint: Bee Sting, Allergic Reaction Time Seen by Provider: 03/13/20 22:05 Source: patient, RN notes reviewed, old records reviewed Mode of arrival: ambulatory Limitations: no limitations - History of Present Illness Initial comments: Patient is a 54-year-old male presents returned today with a bee sting over his left eyebrow. Patient has swelling over the left upper eyelid and reports his eye was closing. Patient states that he took some Claritin earlier today. He s tates it seems the swelling is progressing to the lower portion of the cheek and even onto the other eye. He states that he's had no previous anaphylactic history of ALLERGIC reactions to bee stings. He states that just with the area he was stung seems to swell more. Denies any visual changes. - Related Data Home Medications Medication Instructions Recorded Confirmed Glucosamine Sulfate 1,500 mg PO BID PRN 09/10/16 09/27/18 Levothyroxine Sodium [Synthroid] 200 mcg PO DAILY 09/10/16 09/27/18 Omeprazole 20 mg PO BID 09/10/16 09/27/18 Multivitamin [Men's Multi-Vitamin] 1 tab PO DAILY 03/27/17 09/27/18 Aspirin 81 mg PO DAILY 04/15/17 09/27/18 Metoprolol Tartrate 25 mg PO BID 04/16/17 09/27/18 Previous Rx's Medication Instructions Recorded Atorvastatin [Lipitor] 40 mg PO HS tab 04/17/17 amLODIPine [Norvasc] 10 mg PO HS #30 tablet 09/28/18 lisinopriL [Zestril] 20 mg PO DAILY #30 tab 09/28/18 EPINEPHrine (Auto Inject) [Epipen] 0.3 mg IM ONCE PRN #1 pen 03/13/20 Loratadine [Claritin] 10 mg PO DAILY #20 tab 03/13/20 diphenhydrAMINE HCL [Benadryl] 25 mg PO HS #20 tab 03/13/20 predniSONE [Deltasone] 20 mg PO DIRECTED #12 tab 03/13/20 Allergies Allergy/AdvReac Type Severity Reaction Status Date / Time No Known Allergies Allergy Verified 03/13/20 22:04 Review of Systems ROS Statement: Those systems with pertinent positive or pertinent negative responses have been documented in the HPI. ROS Other: All systems not noted in ROS Statement are negative. Past Medical History Past Medical History: Cancer, GERD/Reflux, Hyperlipidemia, Hypertension, Thyroid Disorder Additional Past Medical History / Comment(s): 3 stents, HX THYROID CANCER, hx. colon polyps, occasional blood in stool, hx. hemorrhoids, diverticulosis, hiatal hernia. HX (FAP) FAMILIAL ADENOMATOUS POLYPOSIS. CRUZ'S ESOPHAGUS History of Any Multi-Drug Resistant Organisms: None Reported Past Surgical History: Heart Catheterization With Stent Additional Past Surgical History / Comment(s): THYROIDECTOMY, EGD, COLONOSCOPY Past Anesthesia/Blood Transfusion Reactions: No Reported Reaction Date of Last Stent Placement:: 2016 Past Psychological History: No Psychological Hx Reported Smoking Status: Never smoker Past Alcohol Use History: Occasional Past Drug Use History: None Reported - Past Family History Father Family Medical History: Cancer Additional Family Medical History / Comment(s): MELENOMA Mother Family Medical History: Pulmonary Embolus General Exam - General Exam Comments Initial Comments: 54-year-old male. Alert and oriented 3. No significant distress. Limitations: no limitations General appearance: alert, in no apparent distress Head exam: Present: atraumatic, normocephalic, normal inspection Eye exam: Present: normal appearance, PERRL, EOMI, periorbital swelling (Patient is left eye periorbital swelling. No evidence of stinger around the skin. Patient is able to open his eye. Negative Ovidio sign. The sclera and conjunctiva appear normal no erythema. Pupils equal and reactive.), other. Absent: scleral icterus, conjunctival injection ENT exam: Present: normal exam, mucous membranes moist Neck exam: Present: normal inspection. Absent: tenderness, meningismus, lymphadenopathy Respiratory exam: Present: normal lung sounds bilaterally. Absent: respiratory distress, wheezes, rales, rhonchi, stridor Cardiovascular Exam: Present: regular rate, normal rhythm, normal heart sounds. Absent: systolic murmur, diastolic murmur, rubs, gallop, clicks GI/Abdominal exam: Present: soft, normal bowel sounds. Absent: distended, tenderness, guarding, rebound, rigid Extremities exam: Present: normal inspection, full ROM, normal capillary refill. Absent: tenderness, pedal edema, joint swelling, calf tenderness Back exam: Present: normal inspection Neurological exam: Present: alert, oriented X3, CN II-XII intact Psychiatric exam: Present: normal affect, normal mood Skin exam: Present: warm, dry, intact, normal color. Absent: rash Course Vital Signs 03/13/20 22:02 Temperature 98.7 F Pulse Rate 80 Respiratory 20 Rate Blood Pressure 158/95 O2 Sat by Pulse 98 Oximetry Medical Decision Making - Medical Decision Making 54-year-old male presents research the bee sting over the left eyebrow with extensive swelling to the eyelid. His eye itself is normal. He reports no visual acuity changes. Negative Ovidio sign. Sclera appears normal. Patient has no pain with extraocular eye movements. Patient's given Benadryl Solu- Medrol and Pepcid for a localized ALLERGIC reaction. Discussed ring the Patient for EpiPen if he has any further bee stings with a worsening reaction. I discussed Patient to follow-up with his primary care doctor in the next few days if this persists and swelling despite medications. Will discharge Patient with steroids Pepcid and Benadryl as well. All questions answered return parameters were discussed. Disposition Clinical Impression: Bee sting Disposition: HOME SELF-CARE Condition: Good Instructions (If sedation given, give patient instructions): Insect Bite or Sting (ED) Additional Instructions: Patient is to take the steroids and antihistamines as prescribed. Recommended close follow-up with your primary care doctor. If the area of redness or swelling does not diminish or worsens over the next 2 days Patient may need to return for reevaluation. Prescriptions: diphenhydrAMINE HCL [Benadryl] 25 mg PO HS #20 tab Loratadine [Claritin] 10 mg PO DAILY #20 tab predniSONE [Deltasone] 20 mg PO DIRECTED #12 tab EPINEPHrine (Auto Inject) [Epipen] 0.3 mg IM ONCE PRN #1 pen PRN Reason: Anaphylaxis Is patient prescribed a controlled substance at d/c from ED?: No Referrals: Jameson Tasng MD [Primary Care Provider] - 1-2 days Time of Disposition: 23:04
[2020-03-13 23:38] VITALS: BP 132/102; PULSE 72; RESP 17
== END 2020-03-13 23:39 | disposition home or self-care (01) ==
LOC: EC 21:57
DX: T63.441A Toxic effect of venom of bees, accidental (unintentional), initial encounter (principal); K21.9 Gastro-esophageal reflux disease without esophagitis; I10 Essential (primary) hypertension; E78.5 Hyperlipidemia, unspecified; E07.9 Disorder of thyroid, unspecified; Z79.899 Other long term (current) drug therapy; Z79.890 Hormone replacement therapy; Z85.850 Personal history of malignant neoplasm of thyroid; Z90.89 Acquired absence of other organs; Z95.5 Presence of coronary angioplasty implant and graft
CPT/HCPCS: 99283; 96372 ×2; J1200; J2930

== ENCOUNTER → 2020-05-04 | Outpatient (CLI) | payer BC ==
[2020-05-04 08:46] LABS: Basophils # (A) 0.1 k/uL (0-0.2); Basophils % (A) 1 %; Eosinophils # (A) 0.1 k/uL (0-0.7); Eosinophils % (A) 1 %; HCT 44.3 % (39.0-53.0); HGB 14.2 gm/dL (13.0-17.5); Lymphocytes % (A) 39 %; MCH 30.3 pg (25.0-35.0); MCHC 32.1 g/dL (31.0-37.0); MCV 94.4 fL (80.0-100.0); Mean Platelet Volume 7.4; Monocytes # (A) 0.3 k/uL (0-1.0); Monocytes % (A) 4 %; Neutrophils # (A) 4.1 k/uL (1.3-7.7); Neutrophils % (A) 54 %; Platelet Count 223 k/uL (150-450); RBC 4.69 m/uL (4.30-5.90); RDW 12.8 % (11.5-15.5); WBC 7.7 k/uL (3.8-10.6)
[2020-05-04 16:57] LABS: Hemoglobin A1C 5.3 % (4.0-6.0)
[2020-05-04 18:25] LABS: African American GFR (CKD) 98.5 (60.0-200.0); Albumin 3.9 g/dL (3.80-4.90); Albumin/Globulin Ratio 2.29 (1.60-3.17); Anion Gap 7.3 mmol/L (4.00-12.00); Carbon Dioxide 27.7 mmol/L (21.6-31.8); Chol/HDL Ratio 1.94; Globulin 1.7 g/dL (1.6-3.3); LDL Cholesterol,Calculated 52.8 mg/dL (0.0-131.0); Non-African American GFR(CKD) 84.9 (60.0-200.0); Potassium 4.3 mmol/L (3.5-5.5); Total Bilirubin 0.6 mg/dL (0.2-1.2); Total Protein 5.6 g/dL (6.2-8.2); VLDL Calculation 13.2 mg/dL (5.00-40.00)
[2020-05-04 18:33] LABS: T4, Free (Free Thyroxine) 1.6 ng/dL (0.80-1.80)
== END | disposition home or self-care (01) ==
LOC: LABWHC1 07:51
PROVIDERS: ATTEND Nurse Practitioner Adult Health
DX: E78.2 Mixed hyperlipidemia (principal); I25.119 Atherosclerotic heart disease of native coronary artery with unspecified angina pectoris; R73.9 Hyperglycemia, unspecified; E03.9 Hypothyroidism, unspecified
CPT/HCPCS: 36415; 80053; 80061; 82550; 83036; 84439; 84443; 85025

== ENCOUNTER → 2020-11-14 | Outpatient (CLI) | payer MEDICAID ==
[2020-11-14 10:48] LABS: Basophils # (A) 0.07 X 10*3/uL (0.00-0.10); Basophils % (A) 0.8 %; Eosinophils # (A) 0.08 X 10*3/uL (0.04-0.35); HCT 43.9 % (39.6-50.0); HGB 14.6 g/dL (13.0-17.0); Lymphocytes # (A) 3.47 X 10*3/uL (0.90-5.00); Lymphocytes % (A) 41.5 %; MCHC 33.3 g/dL (32.0-37.0); MCV 93.2 fL (80.0-97.0); Monocytes # (A) 0.49 X 10*3/uL (0.20-1.00); Monocytes % (A) 5.9 %; Neutrophils # (A) 4.22 X 10*3/uL (1.80-7.70); Neutrophils % (A) 50.4 %; Platelet Count 260 X 10*3/uL (140-440); RBC 4.71 X 10*6/uL (4.40-5.60); RDW 12.4 % (11.5-14.5); WBC 8.36 X 10*3/uL (4.50-10.00)
[2020-11-14 10:59] LABS: African American GFR (CKD) 97.8 (60.0-200.0); Anion Gap 4.7 mmol/L (4.00-12.00); Calcium 8.8 mg/dL (8.7-10.3); Carbon Dioxide 30.3 mmol/L (21.6-31.8); Chol/HDL Ratio 1.78; Non-African American GFR(CKD) 84.4 (60.0-200.0); Potassium 4.1 mmol/L (3.5-5.5); Total Bilirubin 0.8 mg/dL (0.3-1.2)
[2020-11-14 11:07] LABS: Prostate Specific Antigen 0.4 ng/mL (0.0-3.5); T4, Free (Free Thyroxine) 1.4 ng/dL (0.80-1.80)
== END | disposition home or self-care (01) ==
LOC: LABWHC1 06:59
PROVIDERS: ATTEND Internal Medicine Interventional Cardiology
DX: I25.119 Atherosclerotic heart disease of native coronary artery with unspecified angina pectoris (principal); E03.9 Hypothyroidism, unspecified; E78.2 Mixed hyperlipidemia; N40.0 Benign prostatic hyperplasia without lower urinary tract symptoms
CPT/HCPCS: 36415; 80053; 80061; 84153; 84439; 84443; 85025

== ENCOUNTER 2021-01-25 08:44 | Day surgery (SDC) | payer BC, MEDICAID ==
[2021-01-23 16:56] VITALS: BMI 26.4
[~2021-01-25 08:44] MED LIST changes: -ALPRAZolam 0.25 MG TAB PO PRN; -ALPRAZolam 0.5 MG TAB PO PRN; -ASPIRIN 325 MG TAB PO STA; -ATORVASTATIN 80 MG TAB PO STA; +LACTATED RINGERS 1,000 ML IV SCH; -NITROGLYCERIN SL TABS 0.4 MG TAB SUBLINGUAL PRN; -SODIUM CHLORIDE 0.9% 1,000 ML in EMPTY BAG 1 BAG IV ONE
[2021-01-25 09:08] VITALS: RESP 16; TEMP 98.9
[2021-01-25] MEDS ORDERED: LIDOCAINE 1% (10MG/ML) FOR IV START INTRADERMA ONE (09:16)
[2021-01-25] MEDS ORDERED: MIDAZOLAM 2 MG/2 ML VIAL ONE (10:13)
[2021-01-25] MEDS ORDERED: PROPOFOL 10 MG/ML 20 ML VIAL IV ONE (10:13)
--- NOTE | 2021-01-25 10:36 | P.PCN ---
Date of Procedure: 01/25/21 Procedure(s) Performed: Brief history: Patient is a pleasant 55-year-old white male scheduled for an elective upper endoscopy as well as colonoscopy as a part of evaluation of GERD/Acharya's esophagus and personal history of hereditary polyposis syndrome with APC gene mutation diagnosed 10 years ago. His last EGD and colonoscopy was 2 years ago. With biopsy Procedure performed: Esophagogastroduodenoscopy with biopsy Colonoscopy Preoperative diagnosis: GERD/Acharya's esophagus Hereditary polyposis syndromes with APC gene mutation Anesthesia: MAC Procedure: After informed consent was obtained from the patient was brought into the endoscopy unit and IV sedation was administered by anesthesia under continuous monitoring. Initially upper endoscopy was done. The Olympus GF 160 video endoscope was inserted inserted into the mouth and esophagus intubated without any difficulty and was gradually advanced into the stomach and duodenum and carefully examined. The bulb and second part of the duodenum appeared normal. The scope was then withdrawn into the stomach adequately insufflated with air and upon careful examination the antrum and body, cardia and fundus appeared normal. The scope was then withdrawn into the esophagus. There was a 5 mm polyp noted GE junction that was biopsied. The GE junction was located at 40 cm to the incisors. It appearedirregular and there was a short segment of Acharya's esophagus extending 1 cm proximal to the GE junction which was biopsied. Rest of the esophagus appeared normal. Patient tolerated the procedure well. At this time the patient continued to remain sedation. Initial digital rectal examination was normal. Olympus CF 160 video colonoscope was then inserted into the rectum and gradually advanced to the cecum without any difficulty. Careful examination was performed as the scope was gradually being withdrawn. The prep was excellent. The cecum, ascending colon, transverse colon, descending colon, sigmoid colon and rectum appeared normal. Retroflexion was performed in the rectum and small internal hemorrhoids were noted. Patient tolerated the procedure well. Impression: 1.Upper endoscopy revealed a 5 mm GE junction polyp and short segment Acharya's esophagus as well as small hiatal hernia 2.Colonoscopy revealed small internal hemorrhoids but no evidence of colorectal neoplasia Recommendations: Findings of this examination were discussed with the patient as well Klarissa family. She was advised to follow with the biopsy results. If the biopsy confirms the presence of Acharya's esophagus he can have a repeat upper endoscopy as well as colonoscopy in 2 years
[2021-01-25 11:09] VITALS: BP 145/90; PULSE 75
== END 2021-01-25 11:26 | disposition home or self-care (01) ==
LOC: ORWHC2ENDO 08:44
PROVIDERS: ATTEND Internal Medicine Gastroenterology
DX: K29.50 Unspecified chronic gastritis without bleeding (principal); D12.6 Benign neoplasm of colon, unspecified; K22.70 Barrett's esophagus without dysplasia; K44.9 Diaphragmatic hernia without obstruction or gangrene; K64.8 Other hemorrhoids; K21.9 Gastro-esophageal reflux disease without esophagitis; I25.10 Atherosclerotic heart disease of native coronary artery without angina pectoris; I10 Essential (primary) hypertension; Z95.5 Presence of coronary angioplasty implant and graft; E78.5 Hyperlipidemia, unspecified; E07.9 Disorder of thyroid, unspecified; Z79.82 Long term (current) use of aspirin; Z79.890 Hormone replacement therapy; Z79.899 Other long term (current) drug therapy
CPT/HCPCS: 88305; 45378; 43239; J2250; J2704

== ENCOUNTER → 2021-05-14 | Outpatient (CLI) | payer MEDICAID ==
[2021-05-14 16:32] LABS: Basophils # (A) 0.04 X 10*3/uL (0.00-0.10); Basophils % (A) 0.5 %; Eosinophils # (A) 0.05 X 10*3/uL (0.04-0.35); Eosinophils % (A) 0.6 %; HCT 42.8 % (39.6-50.0); HGB 14.7 g/dL (13.0-17.0); Lymphocytes # (A) 3.08 X 10*3/uL (0.90-5.00); Lymphocytes % (A) 37.6 %; MCH 32.3 pg (27.0-32.0); MCHC 34.3 g/dL (32.0-37.0); MCV 94.1 fL (80.0-97.0); Mean Platelet Volume 11.1 fL (9.5-12.2); Monocytes # (A) 0.39 X 10*3/uL (0.20-1.00); Monocytes % (A) 4.8 %; Neutrophils # (A) 4.61 X 10*3/uL (1.80-7.70); Neutrophils % (A) 56.1 %; Platelet Count 265 X 10*3/uL (140-440); RBC 4.55 X 10*6/uL (4.40-5.60)
[2021-05-14 16:45] LABS: Hemoglobin A1C 5.3 % (4.0-6.0)
[2021-05-15 23:23] LABS: African American GFR (CKD) 83.4 (60.0-200.0); Albumin 4.5 g/dL (3.8-4.9); Albumin/Globulin Ratio 2.03 (1.60-3.17); Anion Gap 18.9 mmol/L (4.00-12.00); BUN/Creat Ratio 11.75 Ratio (12.00-20.00); Blood Urea Nitrogen 13.4 mg/dL (9.0-27.0); Calcium 9.5 mg/dL (8.7-10.3); Carbon Dioxide 19.8 mmol/L (21.6-31.8); Chol/HDL Ratio 1.99 Ratio; Globulin 2.2 g/dL (1.6-3.3); HDL Cholesterol 83.5 mg/dL (40.00-60.00); LDL Cholesterol,Calculated 64.1 mg/dL (0.0-131.0); Potassium 4.2 mmol/L (3.5-5.5); T4, Free (Free Thyroxine) 1.45 ng/dL (0.800-1.800); Total Bilirubin 0.9 mg/dL (0.30-1.20); Total Protein 6.7 g/dL (6.2-8.2); Triglycerides 92.2 mg/dL (0.00-149.00); VLDL Calculation 18.44 mg/dL (5.00-40.00)
== END | disposition home or self-care (01) ==
LOC: LABWHC1 10:39
PROVIDERS: ATTEND Internal Medicine Geriatric Medicine
DX: E03.9 Hypothyroidism, unspecified (principal); E78.2 Mixed hyperlipidemia; R73.9 Hyperglycemia, unspecified; K22.719 Barrett's esophagus with dysplasia, unspecified
CPT/HCPCS: 36415; 80053; 80061; 83036; 84439; 84443; 85025

== ENCOUNTER → 2021-11-26 | Outpatient (CLI) | payer MEDICAID ==
[2021-11-26 14:36] LABS: Basophils # (A) 0.06 X 10*3/uL (0.00-0.10); Basophils % (A) 0.7 %; Eosinophils # (A) 0.05 X 10*3/uL (0.04-0.35); Eosinophils % (A) 0.6 %; HCT 43.4 % (39.6-50.0); HGB 13.9 g/dL (13.0-17.0); Immature Grans, Automated 0.5 %; Lymphocytes # (A) 2.98 X 10*3/uL (0.90-5.00); Lymphocytes % (A) 34.6 %; MCV 96.7 fL (80.0-97.0); Mean Platelet Volume 10.9 fL (9.5-12.2); Monocytes # (A) 0.42 X 10*3/uL (0.20-1.00); Monocytes % (A) 4.9 %; NRBC Per 100 WBC 0 /100 WBCS (0.0-0.0); Neutrophils # (A) 5.06 X 10*3/uL (1.80-7.70); Neutrophils % (A) 58.7 %; Platelet Count 250 X 10*3/uL (140-440); RBC 4.49 X 10*6/uL (4.40-5.60); RDW 13.4 % (11.5-14.5); WBC 8.61 X 10*3/uL (4.50-10.00)
[2021-11-26 14:50] LABS: ALT 76 U/L (10-49); AST 54 U/L (14-35); African American GFR (CKD) 87.5 (60.0-200.0); Albumin 4.4 g/dL (3.8-4.9); Albumin/Globulin Ratio 2.02 (1.60-3.17); Alkaline Phosphatase 71 U/L (41-126); BUN/Creat Ratio 12.48 Ratio (12.00-20.00); Blood Urea Nitrogen 13.6 mg/dL (9.0-27.0); Calcium 9.1 mg/dL (8.7-10.3); Carbon Dioxide 23.4 mmol/L (20.0-27.5); Chloride 103 mmol/L (96-109); Globulin 2.2 g/dL (1.6-3.3); Glucose 102 mg/dL (70-110); Non-African American GFR(CKD) 75.5 (60.0-200.0); Sodium 140 mmol/L (135-145); Total Protein 6.6 g/dL (6.2-8.2)
== END | disposition home or self-care (01) ==
LOC: LABWHC1 08:01
PROVIDERS: ATTEND Nurse Practitioner Adult Health
DX: I25.84 Coronary atherosclerosis due to calcified coronary lesion (principal); E03.9 Hypothyroidism, unspecified; E78.2 Mixed hyperlipidemia; N40.0 Benign prostatic hyperplasia without lower urinary tract symptoms
CPT/HCPCS: 36415; 80053; 80061; 84153; 84439; 84443; 85025

== ENCOUNTER → 2021-12-13 | Outpatient (CLI) | payer MEDICAID ==
--- NOTE | 2021-12-13 13:20 | CA ---
Exercise Stress Test Report Name: Shad Crabtree Exam Date: 12/13/2021 09:51 Exam Location: [place] Stress Ht (in): 73 Wt (lb): 200 BSA: 2.15 Ordering Phys: Suzi Kelsey MD Referring Phys: Francisca South [facility] Technologist: Srini Lion Age: 56 Gender: M : 1965 Procedure CPT: Indications: I25.10 ATHSCL HEART DISEASE OF [place] CORONARY ICD-10 Codes: Patient History: Cardiovascular Disease Medications: Lisinopril, Omeperazole, Amlodipine, Metoprolol, Atorvastatin, Levothyroxine, Multi Vitamin Meds past 24 hrs: Pretest Chest Pain: STRESS TEST Samuel Protocol Exercise Duration (min:sec): 10:[address] Depressions (mm): Angina Score: Mckee Score: Resting HR (bpm): 99 Peak HR (bpm): 169 Resting BP (mmHg): 132 / 98 Peak BP (mmHg): 190 / 91 MPHR: 164 Target HR: 139 % MPHR: 103 METS: 12.1 Total Dose: Peak Dose: Atropine: Double Product: 87949 BP Response: Stress Termination: Reached target heart rate Stress Symptoms: No chest pain or symptoms Stress Summary: ECG ANALYSIS Resting ECG: Stress ECG: CONCLUSIONS Baseline EKG revealed normal sinus rhythm without significant ST-T changes. Patient walked on a standard Samuel protocol for a total duration of 10 minutes and achieved a maximal heart rate of 169 bpm which is available 100% of his predicted maximal. There was no angina there was no arrhythmia. There were no EKG changes to indicate ischemia. By EKG if it is a negative stress test with good exercise capacity. The nuclear scan results will be reported by the radiologist Dr. Ada Silva MD (Electronically Signed) Final Date: 13 December 2021 13:19
--- NOTE | 2021-12-13 13:56 | NM ---
EXAMINATION TYPE: NM stress cardiolite complete DATE OF EXAM: 12/13/2021 COMPARISON: NONE HISTORY: Atherosclerotic heart disease. History of hypertension and hypercholesterolemia. History of three-vessel angioplasty. TECHNIQUE: After the intravenous administration of 9.1 mCi Tc 99m Sestamibi - Rest images obtained 4 5 minutes post injection. The patient exercised using a KAMRAN protocol and 1 minute prior to peak e xercise was injected with 24.9 mCi Tc 99m Sestamibi - Stress images obtained 10 minutes post injectio n. FINDINGS: Targeted heart rate was achieved during performance of the study. Review of stress and rest SPECT new ges demonstrates diminished uptake involving the inferior lateral wall on stress and rest images coul d reflect artifact versus old infarct. Polar map suggest some diminished uptake on stress images ehtan ryan rest images though this is less well reproduced on the raw data images. Gated analysis shows norm al wall motion with an estimated left ventricular ejection fraction of 67 %. IMPRESSION: As above. Equivocal findings. Need to further investigate by direct catheter angiogram sh ould be based on clinical correlation and/or degree of clinical suspicion.
--- NOTE | 2021-12-14 13:05 | CA ---
Transthoracic Echo Report Name: Shad Crabtree Age: 56 Gender: M : 1965 Exam Date: 12/13/2021 10:23 Exam Location: [place] Echo Ht (in): 72 Wt (lb): 205 Ordering Physician: Suzi Kelsey MD ([id number]) Attending/Referring Phys: Francisca South COUNT INCLUDES THE [facility] Life Manager Salome Jones RDCS Procedure CPT: Indications: I25.10 ATHSCL HEART DISEASE OF [place] CORONARY Cardiac Hx: CAD, HTN Technical Quality: Good Contrast 1: N/A Total Dose (mL): Contrast 2: Total Dose (mL): MEASUREMENTS (Male / Female) Normal Values 2D ECHO LV Diastolic Diameter PLAX 4.3 cm 4.2 - 5.9 / 3.9 - 5.3 cm LV Systolic Diameter PLAX 3.2 cm IVS Diastolic Thickness 1.1 cm 0.6 - 1.0 / 0.6 - 0.9 cm LVPW Diastolic Thickness 1.3 cm 0.6 - 1.0 / 0.6 - 0.9 cm LV Relative Wall Thickness 0.6 RV Internal Dim ED PLAX 2.8 cm LA Systolic Diameter LX 3.6 cm 3.0 - 4.0 / 2.7 - 3.8 cm LA Volume 53.8 cm 18 - 58 / 22 - 52 cm M-MODE Aortic Root Diameter MM 3.7 cm MV E Point Septal Separation 0.6 cm AV Cusp Separation MM 1.9 cm DOPPLER MV Area PHT 3.5 cm Mitral E Point Velocity 52.5 cm/s Mitral A Point Velocity 61.4 cm/s Mitral E to A Ratio 0.9 MV Deceleration Time 217.8 ms MV E' Velocity 4.4 cm/s Mitral E to MV E' Ratio 11.9 TR Peak Velocity 174.1 cm/s TR Peak Gradient 12.1 mmHg Right Ventricular Systolic Press 17.1 mmHg FINDINGS Left Ventricle Normal Left ventricular size, wall thickness, systolic function with no obvious regional wall motion abnormalities. Left ventricular ejection fraction is estimated at 50-60%. Right Ventricle Normal right ventricular size and function. Right ventricular systolic pressure within normal limits. Right Atrium Normal right atrial size. Left Atrium Left atrial size at the upper limits of normal: no evidence for an atrial septal defect. Mitral Valve Mild mitral regurgitation. Aortic Valve Trileaflet aortic valve. Tricuspid Valve Mild tricuspid regurgitation. Pulmonic Valve Structurally normal pulmonic valve. Pericardium Echo free space anterior to the right ventricle likely represents a fat pad. Aorta Normal size aortic root and proximal ascending aorta. CONCLUSIONS Left ventricular systolic function is normal there is mild tricuspid regurgitation and mild mitral regurgitation Previewed by: Dr. Kenny Howell MD (Electronically Signed) Final Date: 14 December 2021 13:04
== END | disposition home or self-care (01) ==
LOC: RADNMMAIN 08:01
PROVIDERS: ATTEND Internal Medicine Interventional Cardiology
DX: I08.1 Rheumatic disorders of both mitral and tricuspid valves (principal); I25.10 Atherosclerotic heart disease of native coronary artery without angina pectoris; I10 Essential (primary) hypertension; E78.00 Pure hypercholesterolemia, unspecified
CPT/HCPCS: 93017; 93306; 78452; A9500

== ENCOUNTER → 2021-12-17 | Outpatient (CLI) | payer MEDICAID ==
[2021-12-17 15:27] LABS: ALT 37 U/L (10-49); AST 32 U/L (14-35)
== END | disposition home or self-care (01) ==
LOC: LABWHC1 08:02
PROVIDERS: ATTEND Nurse Practitioner Adult Health
DX: I10 Essential (primary) hypertension (principal); E03.9 Hypothyroidism, unspecified; E78.2 Mixed hyperlipidemia; I08.1 Rheumatic disorders of both mitral and tricuspid valves
CPT/HCPCS: 36415; 84450; 84460

== ENCOUNTER → 2022-06-26 | Outpatient (CLI) | payer MEDICAID ==
[2022-06-26 14:22] LABS: ALT 35 U/L (10-49); AST 30 U/L (14-35); African American GFR (CKD) 89.5 (60.0-200.0); Albumin 4.2 g/dL (3.8-4.9); Albumin/Globulin Ratio 1.85 (1.60-3.17); Alkaline Phosphatase 69 U/L (41-126); Blood Urea Nitrogen 13.8 mg/dL (9.0-27.0); Calcium 8.9 mg/dL (8.7-10.3); Carbon Dioxide 27.6 mmol/L (20.0-27.5); Chloride 104 mmol/L (96-109); Chol/HDL Ratio 2.16 Ratio; Globulin 2.3 g/dL (1.6-3.3); Glucose 91 mg/dL (70-110); LDL Cholesterol,Calculated 66.7 mg/dL (0.0-131.0); Non-African American GFR(CKD) 77.2 (60.0-200.0); Potassium 3.8 mmol/L (3.5-5.5); Sodium 141 mmol/L (135-145); Total Protein 6.5 g/dL (6.2-8.2); VLDL Calculation 16.48 mg/dL (5.00-40.00)
== END | disposition home or self-care (01) ==
LOC: LABWHC1 07:28
PROVIDERS: ATTEND Internal Medicine Interventional Cardiology
DX: E78.2 Mixed hyperlipidemia (principal)
CPT/HCPCS: 36415; 80053; 80061

== ENCOUNTER → 2022-07-17 | Outpatient (CLI) | payer MEDICAID | END | disposition home or self-care (01) | LOC: LABWHC1 08:08 | PROVIDERS: ATTEND Internal Medicine Geriatric Medicine | DX: E03.9 Hypothyroidism, unspecified (principal); E29.1 Testicular hypofunction | CPT/HCPCS: 36415; 84403; 84439; 84443 ==

== ENCOUNTER 2022-08-07 14:16 | Observation (INO) | payer MEDICAID ==
[2022-08-07] MEDS ORDERED: NITROGLYCERIN OINT 1 INCH/GM PACKET TOPICAL STA (15:37)
[2022-08-07] MEDS ORDERED: ASPIRIN 81 MG PO STA (15:37)
[2022-08-07 15:50] LABS: Basophils # (A) 0.1 k/uL (0-0.2); Basophils % (A) 1 %; Eosinophils # (A) 0.1 k/uL (0-0.7); Eosinophils % (A) 1 %; HCT 47.3 % (39.0-53.0); HGB 16.4 gm/dL (13.0-17.5); Lymphocytes # (A) 3.4 k/uL (1.0-4.8); Lymphocytes % (A) 40 %; MCH 32.3 pg (25.0-35.0); MCHC 34.7 g/dL (31.0-37.0); MCV 93.2 fL (80.0-100.0); Mean Platelet Volume 8.7; Monocytes # (A) 0.3 k/uL (0-1.0); Monocytes % (A) 3 %; Neutrophils # (A) 4.5 k/uL (1.3-7.7); Neutrophils % (A) 53 %; Platelet Count 220 k/uL (150-450); RBC 5.07 m/uL (4.30-5.90); RDW 12.4 % (11.5-15.5); WBC 8.5 k/uL (3.8-10.6)
[2022-08-07 15:59] LABS: Prothrombin Time 10.3 sec (9.0-12.0)
[2022-08-07 16:04] LABS: ALT 47 U/L (4-49); AST 41 U/L (17-59); African American GFR (CKD) >90 (>60 ml/min/1.73 sqM); Albumin 4.7 g/dL (3.5-5.0); Alkaline Phosphatase 90 U/L (38-126); Anion Gap 6 mmol/L; Blood Urea Nitrogen 15 mg/dL (9-20); Calcium 9.2 mg/dL (8.4-10.2); Carbon Dioxide 28 mmol/L (22-30); Chloride 105 mmol/L (98-107); Glucose 92 mg/dL (74-99); Magnesium 1.7 mg/dL (1.6-2.3); Non-African American GFR(CKD) 90 (>60 ml/min/1.73 sqM); Potassium 3.6 mmol/L (3.5-5.1); Sodium 139 mmol/L (137-145); Total Bilirubin 0.8 mg/dL (0.2-1.3); Total Protein 7.5 g/dL (6.3-8.2)
--- NOTE | 2022-08-07 16:15 | XR ---
EXAMINATION TYPE: XR chest 2V DATE OF EXAM: 08/07/2022 COMPARISON: NONE HISTORY: Shortness of breath TECHNIQUE: Frontal and lateral views of the chest are obtained. FINDINGS: Scattered senescent parenchymal changes noted. Hyperinflation compatible with COPD. No evidence for infiltrate. No evidence for atelectasis. Heart size is stable. Mediastinal structures are stable and grossly unremarkable. No evidence for hilar prominence. Degenerative changes dorsal spine. IMPRESSION: 1. No evidence for acute pulmonary disease.
[2022-08-07] MEDS ORDERED: SILDENAFIL 20 MG TAB PO PRN (17:54)
[2022-08-07] MEDS ORDERED: NITROGLYCERIN SL TABS 0.4 MG TAB SUBLINGUAL PRN (17:59)
--- NOTE | 2022-08-07 17:59 | ED ---
Chest Pain HPI - General Chief Complaint: Chest Pain Stated Complaint: Chest pain Time Seen by Provider: 08/07/22 15:14 Source: patient Mode of arrival: ambulatory Limitations: no limitations - History of Present Illness Initial Comments: This 56-year-old male presents with complaint of chest pain. Describes it as a pinching type sensation into his left chest. There is no radiation or shortness of breath. He states that this occurred today while at work at the hospital. 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 He denies any diaphoresis. He does have a history of previous coronary artery disease and had 3 stents placed in 2017. He follows up with Dr. Kelsey from cardiology. He states that he had a negative stress test approximately 6 months ago. He denies any leg pain or swelling. There is no history of DVT or PE. He denies any other complaints or modifying factors. - Related Data Home Medications Medication Instructions Recorded Confirmed Levothyroxine Sodium [Synthroid] 200 mcg PO MOTUWETHFRSA 09/10/16 08/07/22 Omeprazole 20 mg PO AC-BID 09/10/16 08/07/22 Multivitamin [Men's Multi-Vitamin] 1 tab PO DAILY 03/27/17 08/07/22 Aspirin 81 mg PO DAILY 04/15/17 08/07/22 Metoprolol Tartrate 25 mg PO BID 04/16/17 08/07/22 Atorvastatin [Lipitor] 40 mg PO DAILY 01/23/21 08/07/22 Levothyroxine Sodium [Synthroid] 100 mcg PO KOROMA 08/07/22 08/07/22 Sildenafil Citrate [Sildenafil] 20 mg PO DAILY PRN 08/07/22 08/07/22 Previous Rx's Medication Instructions Recorded amLODIPine [Norvasc] 10 mg PO HS #30 tablet 09/28/18 lisinopriL [Zestril] 20 mg PO DAILY #30 tab 09/28/18 EPINEPHrine (Auto Inject) [Epipen] 0.3 mg IM ONCE PRN #1 pen 03/13/20 Allergies Allergy/AdvReac Type Severity Reaction Status Date / Time No Known Allergies Allergy Verified 08/07/22 15:56 Review of Systems ROS Statement: Those systems with pertinent positive or pertinent negative responses have been documented in the HPI. ROS Other: All systems not noted in ROS Statement are negative. Past Medical History Past Medical History: Cancer, GERD/Reflux, Hyperlipidemia, Hypertension, Thyroid Disorder Additional Past Medical History / Comment(s): 3 stents, HX THYROID CANCER, hx. colon polyps, occasional blood in stool, hx. hemorrhoids, diverticulosis, hiatal hernia. HX (FAP) FAMILIAL ADENOMATOUS POLYPOSIS. CRUZ'S ESOPHAGUS History of Any Multi-Drug Resistant Organisms: None Reported Past Surgical History: Heart Catheterization With Stent Additional Past Surgical History / Comment(s): THYROIDECTOMY, EGD, COLONOSCOPY Past Anesthesia/Blood Transfusion Reactions: No Reported Reaction Date of Last Stent Placement:: 2016 Past Psychological History: No Psychological Hx Reported Smoking Status: Never smoker Past Alcohol Use History: Occasional Past Drug Use History: None Reported - Past Family History Father Family Medical History: Cancer Additional Family Medical History / Comment(s): MELANOMA Mother Family Medical History: Pulmonary Embolus General Exam - General Exam Comments Initial Comments: GENERAL: The patient is well nourished and well hydrated. VITAL SIGNS: Heart rate, blood pressure, respiratory rate reviewed as recorded in nurse's notes. EYES: Pupils are round and reactive. Extraocular movements are intact. No conjunctival / lid redness or swelling. ENT: No external evidence of injury, swelling, or ecchymosis. Airway is patent. Throat is clear. NECK: Nontender. No swelling or evidence of injury. No subcutaneous emphysema. Trachea is midline. No thyroid mass. HEART: Regular rate and rhythm. Good peripheral pulses. LUNGS/CHEST: Breath sounds clear and equal bilaterally. No rales, rhonchi, or wheezes. No ecchymosis, subcutaneous emphysema, or tenderness. ABDOMEN: Abdomen soft without tenderness. No palpable masses or organomegaly. No peritoneal signs. No abdominal wall swelling or ecchymosis. EXTREMITIES: No extremity tenderness. Normal muscle tone and function. No thoracolumbar tenderness. NEUROLOGIC: Sensation is grossly intact. Cranial nerve exam reveals face is symmetrical, tongue is midline, speech is clear. SKIN: No abrasions or ecchymosis is noted. No induration or masses noted. PSYCHIATRIC: Alert and oriented. Appropriate behavior and judgment. 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 All diagnostics are reviewed. 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 The EKG shows a normal sinus rhythm at a rate of 64. There is no acute ST-T wave changes identified. The CA intervals 162, QRS duration is 113, and the QTC duration is 420. Chest x-ray does not show any acute processes. The cardiac profile labs are all essentially within normal limits. Due to his history, it is felt as though he benefit from admission to the hospital overnight with cardiology to consult. Case is discussed with internal medicine KELIN Mendenhall who is agreeable. Observation admission placed. Disposition Clinical Impression: Chest pain, Unstable angina, History of coronary artery stent placement, Hypertension Disposition: ADMITTED IP TO THIS HOSP Condition: Fair Is patient prescribed a controlled substance at d/c from ED?: No Time of Disposition: 17:58 Decision Date: 08/07/22 Decision Time: 17:55
[2022-08-07] MEDS: NITROGLYCERIN OINT 1 INCH/GM PACKET TOPICAL SCH ×2 (18:32→23:45)
[2022-08-07] MEDS: LEVOTHYROXINE 100 MCG TAB PO SCH (18:38)
[2022-08-07] MEDS: METOPROLOL TARTRATE 25 MG TAB PO SCH (20:29)
[2022-08-07] MEDS ORDERED: amLODIPine 10 MG TAB PO SCH (21:00)
[2022-08-08 03:26] VITALS: RESP 16
[2022-08-08] MEDS: NITROGLYCERIN OINT 1 INCH/GM PACKET TOPICAL SCH (06:10)
[2022-08-08] MEDS: LEVOTHYROXINE 100 MCG TAB PO SCH (06:14)
[2022-08-08] MEDS ORDERED: PANTOPRAZOLE 40 MG TABLET PO SCH (07:30)
[2022-08-08 08:34] VITALS: TEMP 98.3
--- NOTE | 2022-08-08 08:52 | P.CRDCN ---
History of Present Illness Consult date: 08/08/22 Consult reason: chest pain History of present illness: History of present illness: This is a 56 year old male patient with past mental history of coronary artery disease status post PCI, hypertension, dyslipidemia, gastroesophageal reflux disease, previous history of tobacco use and dependence, hypothyroidism. He follows in the office with Dr. Kelsey. Patient gives history that yesterday afternoon at 1:30 he started having "pings" of chest pain in the left upper area. He states he was feeling a little bit dizzy when he was walking in the hospital and his blood pressure was elevated. He states the pain is different than when he had stenting done 5 years ago. He states he has been taking all his medications as directed but if anything he would miss an occasional amlodipine but only rarely. He last saw Dr. Kelsey about 2 months ago. His initial blood pressure was 164/103 and this morning is 146/93 heart rate is in the 60s and 70s. EKG is a sinus rhythm with no acute ST changes. Chest x-ray reveals no acute pulmonary disease CBC is unremarkable. INR 1. CMP unremarkable. Troponin negative 3 Stress Cardiolite 11/2021 revealed equivocal findings. Need to further investigate by direct catheter angiogram should be based on clinical correlation and/or degree of clinical suspicion Echocardiogram 09/2018 reveals preserved left ventricular systolic function with ejection fraction 50-50%, basal inferior wall motion hypokinesia, mild MR and mild to moderate TR noted. He underwent cardiac catheterization in March 2017. He was found to have disease in the distal RCA, and proximal OM. He underwent successful PCI 3. Home cardiac medications: Aspirin 81 mg daily, Lipitor 40 mg daily, lisinopril 20 mg daily, metoprolol tartrate 25 mg twice daily Review Of Systems: At the time of my evaluation: Constitutional: No fever, no chills. No weakness, fatigue or lethargy. EENT: No headache. No dizziness. Lungs: No shortness of breath, cough, no sputum production. No wheezing. Cardiovascular: No chest pain, no lower extremity edema. No palpitations. No paroxysmal nocturnal dyspnea. No orthopnea. No lightheadedness or dizziness. No syncopal episodes. Abdominal: No abdominal pain. No nausea, vomiting. No diarrhea. No constipation. No bloody or tarry stools. No loss of appetite. Genitourinary: No dysuria.. No urinary retention. Musculoskeletal: No myalgias. No muscle weakness, no gait dysfunction, no frequent falls. No back pain. No neck pain. Integumentary: No wounds, no lesions. No rash or pruritus. No unusual bruising. Neurologic: No aphasia. No facial droop. No change in mentation. No head injury. No headache. No paralysis. No paresthesia. Psychiatric: No depression. No anxiety. Endocrine: No abnormal blood sugars. Physical examination: Gen: This is a 56-year-old male. He is resting in bed appears to be comfortable VS: reviewed HEENT: Head is atraumatic, normocephalic. Pupils equal, round. Sclerae is anicteric. NECK: Supple. No JVD. No lymphadenopathy. No thyromegaly. LUNGS: Clear to auscultation. No wheezes or rhonchi. No intercostal retractions. HEART: Regular rate and rhythm. No murmur. ABDOMEN: Soft. Bowel sounds are present. No masses. No tenderness. EXTREMITIES: No pedal edema. No calf tenderness. NEUROLOGICAL: Patient is awake, alert and oriented x3. Cranial nerves 2 through 12 are grossly intact. Assessment: Chest pain, acute coronary syndrome ruled out History of coronary artery disease status post PCI Hypertension, uncontrolled Hyperlipidemia Gastroesophageal reflux disease Previous history of tobacco use and dependence Hypothyroidism Plan: Continue patient's home cardiac medications Start patient on hydrochlorothiazide 25 mg daily Discontinue nitro ointment Obtain stress echocardiogram Obtain 2-D echocardiogram and Doppler study to assess cardiac structure and function If above testing is within normal limits, patient is cleared for discharge home with recommendations to continue the addition of hydrochlorothiazide and follow up with Dr. Kelsey in 1-2 weeks. Thank you kindly for this consultation. Nurse practitioner note has been reviewed, I agree with documented findings and plan of care. Patient was seen and examined. Past Medical History Past Medical History: Cancer, GERD/Reflux, Hyperlipidemia, Hypertension, Thyroid Disorder Additional Past Medical History / Comment(s): 3 stents, HX THYROID CANCER, hx. colon polyps, occasional blood in stool, hx. hemorrhoids, diverticulosis, hiatal hernia. HX (FAP) FAMILIAL ADENOMATOUS POLYPOSIS. CRUZ'S ESOPHAGUS History of Any Multi-Drug Resistant Organisms: None Reported Past Surgical History: Heart Catheterization With Stent Additional Past Surgical History / Comment(s): THYROIDECTOMY, EGD, COLONOSCOPY Past Anesthesia/Blood Transfusion Reactions: No Reported Reaction Date of Last Stent Placement:: 2016 Past Psychological History: No Psychological Hx Reported Smoking Status: Never smoker Past Alcohol Use History: Occasional Past Drug Use History: None Reported - Past Family History Father Family Medical History: Cancer Additional Family Medical History / Comment(s): MELANOMA Mother Family Medical History: Pulmonary Embolus Medications and Allergies Home Medications Medication Instructions Recorded Confirmed Type Levothyroxine Sodium [Synthroid] 200 mcg PO MOTUWETHFRSA 09/10/16 08/07/22 History Omeprazole 20 mg PO AC-BID 09/10/16 08/07/22 History Multivitamin [Men's Multi-Vitamin] 1 tab PO DAILY 03/27/17 08/07/22 History Aspirin 81 mg PO DAILY 04/15/17 08/07/22 History Metoprolol Tartrate 25 mg PO BID 04/16/17 08/07/22 History amLODIPine [Norvasc] 10 mg PO HS #30 tablet 09/28/18 08/07/22 Rx lisinopriL [Zestril] 20 mg PO DAILY #30 tab 09/28/18 08/07/22 Rx EPINEPHrine (Auto Inject) [Epipen] 0.3 mg IM ONCE PRN #1 pen 03/13/20 08/07/22 Rx Atorvastatin [Lipitor] 40 mg PO DAILY 01/23/21 08/07/22 History Levothyroxine Sodium [Synthroid] 100 mcg PO POWERS 08/07/22 08/07/22 History Sildenafil Citrate [Sildenafil] 20 mg PO DAILY PRN 08/07/22 08/07/22 History Allergies Allergy/AdvReac Type Severity Reaction Status Date / Time No Known Allergies Allergy Verified 08/07/22 15:56 Physical Exam Vitals: Vital Signs Temp Pulse Pulse Resp BP BP Pulse Ox 08/08/22 07:20 97 08/08/22 02:52 98.1 F 69 16 127/75 97 08/08/22 00:56 94 L 08/07/22 20:00 69 08/07/22 19:18 98.0 F 70 18 127/62 93 L 08/07/22 18:40 98.8 F 77 17 158/115 96 08/07/22 16:16 73 16 155/112 98 08/07/22 15:30 77 17 163/105 97 08/07/22 15:10 71 08/07/22 14:17 98.4 F 85 18 164/103 99 FiO2 08/08/22 07:20 08/08/22 02:52 08/08/22 00:56 21 08/07/22 20:00 08/07/22 19:18 08/07/22 18:40 08/07/22 16:16 08/07/22 15:30 08/07/22 15:10 08/07/22 14:17 Intake and Output 08/07/22 08/08/22 08/08/22 22:59 06:59 14:59 Other: # Voids 2 2 Weight 95.254 kg Results 08/07/22 15:38 08/07/22 15:38 Cardiac Enzymes 08/07/22 08/07/22 08/07/22 Range/Units 15:38 15:38 18:43 AST 41 (17-59) U/L Troponin I <0.012 <0.012 (0.000-0.034) ng/mL 08/07/22 Range/Units 21:32 AST (17-59) U/L Troponin I <0.012 (0.000-0.034) ng/mL Coagulation 08/07/22 Range/Units 15:38 PT 10.3 (9.0-12.0) sec APTT 23.0 (22.0-30.0) sec CBC 08/07/22 Range/Units 15:38 WBC 8.5 (3.8-10.6) k/uL RBC 5.07 (4.30-5.90) m/uL Hgb 16.4 (13.0-17.5) gm/dL Hct 47.3 (39.0-53.0) % Plt Count 220 (150-450) k/uL Comprehensive Metabolic Panel 08/07/22 Range/Units 15:38 Sodium 139 (137-145) mmol/L Potassium 3.6 (3.5-5.1) mmol/L Chloride 105 (98-107) mmol/L Carbon Dioxide 28 (22-30) mmol/L BUN 15 (9-20) mg/dL Creatinine 0.95 (0.66-1.25) mg/dL Glucose 92 (74-99) mg/dL Calcium 9.2 (8.4-10.2) mg/dL AST 41 (17-59) U/L ALT 47 (4-49) U/L Alkaline Phosphatase 90 (38-126) U/L Total Protein 7.5 (6.3-8.2) g/dL Albumin 4.7 (3.5-5.0) g/dL Current Medications Generic Name Dose Route Start Last Admin Trade Name Freq PRN Reason Stop Dose Admin Amlodipine Besylate 10 mg 08/07/22 21:00 08/07/22 20:29 Amlodipine 10 Mg Tab PO 10 mg HS [facility] Administration Aspirin 325 mg 08/08/22 09:00 Aspirin 325 Mg Tab PO DAILY [facility] Atorvastatin Calcium 40 mg 08/08/22 09:00 Atorvastatin 40 Mg Tab PO DAILY [facility] Enoxaparin Sodium 40 mg 08/08/22 09:00 Enoxaparin 40 Mg/0.4 Ml Syringe SQ DAILY [facility] Hydrochlorothiazide 25 mg 08/08/22 09:00 Hydrochlorothiazide 25 Mg Tab PO DAILY [facility] Levothyroxine Sodium 100 mcg 08/10/22 06:30 Levothyroxine 100 Mcg Tab PO Powers@0630 [facility] Levothyroxine Sodium 200 mcg 08/07/22 18:15 08/08/22 06:14 Levothyroxine 100 Mcg Tab PO 200 mcg [id number] [facility] Administration Lisinopril 20 mg 08/08/22 09:00 Lisinopril 20 Mg Tab PO DAILY [facility] Metoprolol Tartrate 25 mg 08/07/22 21:00 08/07/22 20:29 Metoprolol Tartrate 25 Mg Tab PO 25 mg BID [facility] Administration Multivitamins 1 each 08/08/22 09:00 Multivitamins, Thera 1 Each Tab PO DAILY [facility] Nitroglycerin 0.4 mg 08/07/22 17:59 Nitroglycerin Sl Tabs 0.4 Mg Tab SUBLINGUAL Q5M PRN Chest Pain Nitroglycerin 1 inch 08/07/22 18:30 08/08/22 06:10 Nitroglycerin Oint 1 Inch/Gm Packet TOPICAL Not Given Q6HR [facility] Pantoprazole Sodium 40 mg 08/08/22 07:30 08/08/22 06:13 Pantoprazole 40 Mg Tablet PO 40 mg [id number] [facility] Administration Intake and Output 08/07/22 08/08/22 08/08/22 22:59 06:59 14:59 Other: # Voids 2 2 Weight 95.254 kg 08/07/22 15:38 08/07/22 15:38
[2022-08-08] MEDS ORDERED: ATORVASTATIN 40 MG TAB PO SCH (09:00)
[2022-08-08] MEDS ORDERED: MULTIVITAMINS, THERA 1 EACH TAB PO SCH (09:00)
[2022-08-08] MEDS ORDERED: lisinopriL 20 MG TAB PO SCH (09:00)
[2022-08-08] MEDS ORDERED: ASPIRIN 325 MG TAB PO SCH (09:00)
[2022-08-08] MEDS ORDERED: ENOXAPARIN 40 MG/0.4 ML SYRINGE SQ SCH (09:00)
[2022-08-08] MEDS ORDERED: hydroCHLOROthiazide 25 MG TAB PO SCH (09:00)
--- NOTE | 2022-08-08 09:29 | CA ---
Transthoracic Echo Report Name: Shad Crabtree Age: 56 Gender: M : 1965 Exam Date: 08/08/2022 08:24 Exam Location: [facility] Ht (in): 73 Wt (lb): 210 Ordering Physician: Vladislav Han DO Attending/Referring Phys: [id number], Emely Trim Carpenter Richa Velasquez, [facility] Procedure CPT: Indications: CP Cardiac Hx: Technical Quality: Fair Contrast 1: Total Dose (mL): Contrast 2: Total Dose (mL): MEASUREMENTS (Male / Female) Normal Values 2D ECHO LV Diastolic Diameter PLAX 3.9 cm 4.2 - 5.9 / 3.9 - 5.3 cm LV Systolic Diameter PLAX 2.8 cm IVS Diastolic Thickness 1.6 cm 0.6 - 1.0 / 0.6 - 0.9 cm LVPW Diastolic Thickness 1.7 cm 0.6 - 1.0 / 0.6 - 0.9 cm LV Relative Wall Thickness 0.9 RV Internal Dim ED PLAX 2.6 cm LA Volume 39.4 cm??? 18 - 58 / 22 - 52 cm??? M-MODE Aortic Root Diameter MM 4.1 cm AV Cusp Separation MM 2.4 cm DOPPLER AV Peak Velocity 100.5 cm/s AV Peak Gradient 4.0 mmHg AI Peak Velocity 290.5 cm/s AI Peak Gradient 33.8 mmHg AI Pressure Half Time 518.9 ms MV Area PHT 4.1 cm??? Mitral E Point Velocity 68.3 cm/s Mitral A Point Velocity 71.2 cm/s Mitral E to A Ratio 1.0 MV Deceleration Time 186.7 ms MV E' Velocity 6.0 cm/s Mitral E to MV E' Ratio 11.5 TR Peak Velocity 222.5 cm/s TR Peak Gradient 19.8 mmHg Right Ventricular Systolic Press 23.2 mmHg FINDINGS Left Ventricle Moderately increased left ventricular wall thickness. Normal left ventricular systolic function with no obvious regional wall motion abnormalities. Left ventricular ejection fraction is estimated at 55-60 %. Normal left ventricular diastolic filling pattern. Right Ventricle Normal right ventricular size and function. Right ventricular systolic pressure within normal limits. Right Atrium Normal right atrial size. Left Atrium Normal left atrial size. Mitral Valve Structurally normal mitral valve. No mitral stenosis. Trace to mild mitral regurgitation. Aortic Valve Trileaflet aortic valve. No aortic stenosis. Trace to mild aortic regurgitation. Tricuspid Valve Structurally normal tricuspid valve. Mild tricuspid regurgitation. Pulmonic Valve Trace pulmonic regurgitation. Pericardium No pericardial effusion. Aorta Mild aortic dilatation at the level of the sinuses of valsalva (root). CONCLUSIONS Normal left ventricular dimension and systolic function Aortic sclerosis with mild aortic insufficiency Previewed by: Dr. Williams Smiley MD (Electronically Signed) Final Date: 08 August 2022 09:28
[2022-08-08 09:41] VITALS: BP 142/96; PULSE 89
[2022-08-08] MEDS: METOPROLOL TARTRATE 25 MG TAB PO SCH (09:43)
--- NOTE | 2022-08-08 10:36 | CA ---
Stress Echo Report Shad Crabtree Age: 56 Gender: M : 1965 Exam Date: 08/08/2022 08:31 Exam Location: [facility] Ht (in): 73 Wt (lb): 210 Ordering Physician: Jumana Santacruz Referring Physician: [id number] Craig Expediter Clerk: ANGELINE Technologist Procedure CPT: Indication: CP ICD-9 Codes: Rhythm: Patient History: Cardiac Medications: Medications in past 24 hours: Contrast: Stress Results Protocol: Samuel Total dose(mL): Exercise Duration (min:sec): 9:[address] Depression (mm): Angina Score: Mckee Score: METS: 10.3 Resting HR: 72 Resting BP: 168 / 109 Peak HR: 166 Peak BP: 209 / 104 Max Predicted HR: 164 101 % Max Predicted HR Target HR: 139 Double Product: [id number] Stress Summary: BP Response: Reason for Termination: Reached target heart rate or work-load Cardiac Symptoms: NO SYMPTOMS ECG Analysis Resting ECG: Stress ECG: Arrhythmia: Echo Analysis Resting Echo: Peak Echo Analysis: MEASUREMENTS (Male/Female) Normal Values CONCLUSIONS Excellent exercise tolerance. The patient exercised for 10 minutes. He achieved 100% of maximal productive heart rate Excellent blood pressure and heart rate response to exercise Normal EKG in response to exercise Normal echocardiogram in response to exercise as well Essentially normal stress echocardiogram Dr. Williams Smiley MD (Electronically Signed) Final Date: 08 August 2022 10:36
--- NOTE | 2022-08-08 13:48 | HP ---
HISTORY AND PHYSICAL Combined history and physical and discharge summary. CHIEF COMPLAINT: Chest pain. HISTORY OF PRESENT ILLNESS: This 56-year-old gentleman with past medical history of GERD, hypertension, hyperlipidemia, and CAD stent, being followed by Dr. Tsang in the office complaining of chest pain. Pain was felt in the anterior part of the chest. The patient had a stress echo by Dr. Smiley and Cardiology cleared the patient for discharge. The blood pressure was also elevated. Medications being adjusted at this time. There is no history of any fever, rigors, or chills. PAST MEDICAL HISTORY: Reviewed include GERD, hypertension, rest of the history and chart is reviewed. HOME MEDICATIONS: Reviewed include metoprolol 25 mg b.i.d., dose and rest of medications reviewed. ALLERGIES: None. FAMILY HISTORY: History of melanoma. SOCIAL HISTORY: No history of smoking. Occasional alcohol. REVIEW OF SYSTEMS: A 14-point review of system is negative except mentioned earlier. PHYSICAL EXAMINATION: VITAL SIGNS: Pulse 76, blood pressure 140/93, and respirations 16. HEENT: Conjunctivae normal. NECK: No jugular venous distention. CARDIOVASCULAR: S1-S2. RESPIRATIONS: Diminished at the bases. No rhonchi, no crackles. ABDOMEN: Soft. NERVOUS SYSTEM: No focal deficits. ABDOMEN: Soft. SKIN: No ulcer, rash, or bleeding. JOINTS: No active deforming arthropathy. LABS: Reviewed, normal within normal limits. ASSESSMENT: 1. Chest pain, possibly musculoskeletal. 2. Labile hypertension. 3. History of coronary artery disease, stent. 4. Hyperlipidemia. 5. History of gastroesophageal reflux disease. RECOMMENDATIONS: This is a 56-year-old gentleman who presented with multiple medical issues, we will monitor the patient closely. Recommended to recommend to continue current medications. Cardiology saw the patient and cleared the patient for discharge. I would recommend close follow with Cardiology and primary physician the discharge medication as follows. Please refer to the discharge medication list for further information. Continue the home medications. Increase lisinopril to 20 b.i.d. and also add HydroDIURIL 25 mg p.o. daily and also check CBC, BMP with Dr. Tsang. Follow up with Dr. Tsang and Dr. Lomax. MMODL / IJN: [id number] /
[2022-08-08 14:03] LABS: Chol/HDL Ratio 1.91 Ratio; LDL Cholesterol,Calculated 43.1 mg/dL (0.0-131.0)
[2022-08-10] MEDS ORDERED: LEVOTHYROXINE 100 MCG TAB PO SCH (06:30)
== END 2022-08-08 14:00 | disposition home or self-care (01) ==
LOC: EC 14:16 → 6NMEDSUR 17:59 → INTOOBSV 17:59 → 6NMEDSUR 18:06
PROVIDERS: ADMIT Hospitalist; ATTEND Hospitalist
DX: R07.89 Other chest pain (principal); I25.10 Atherosclerotic heart disease of native coronary artery without angina pectoris; I10 Essential (primary) hypertension; K21.9 Gastro-esophageal reflux disease without esophagitis; E78.5 Hyperlipidemia, unspecified; E89.0 Postprocedural hypothyroidism; Z85.850 Personal history of malignant neoplasm of thyroid; Z95.5 Presence of coronary angioplasty implant and graft; Z79.890 Hormone replacement therapy; Z79.82 Long term (current) use of aspirin; Z79.899 Other long term (current) drug therapy; Z87.891 Personal history of nicotine dependence
CPT/HCPCS: 99285; 36415; 94760; 93005; 93306; 93351; 80061; 80053; 83735; 84484; 85025; 85610; 85730; 71046; G0378 ×2

== ENCOUNTER → 2023-01-15 | Outpatient (CLI) | payer MEDICAID ==
[2023-01-15 15:59] LABS: Basophils # (A) 0.05 X 10*3/uL (0.00-0.10); Basophils % (A) 0.5 %; Eosinophils # (A) 0.03 X 10*3/uL (0.04-0.35); Eosinophils % (A) 0.3 %; HCT 44.3 % (39.6-50.0); HGB 14.9 g/dL (13.0-17.0); Immature Grans, Automated 0.3 %; Lymphocytes # (A) 3.02 X 10*3/uL (0.90-5.00); Lymphocytes % (A) 32.3 %; MCH 31.5 pg (27.0-32.0); MCHC 33.6 g/dL (32.0-37.0); MCV 93.7 fL (80.0-97.0); Mean Platelet Volume 11.3 fL (9.5-12.2); Monocytes # (A) 0.55 X 10*3/uL (0.20-1.00); Monocytes % (A) 5.9 %; NRBC Per 100 WBC 0 /100 WBCS (0.0-0.0); Neutrophils # (A) 5.67 X 10*3/uL (1.80-7.70); Neutrophils % (A) 60.7 %; Platelet Count 260 X 10*3/uL (140-440); RBC 4.73 X 10*6/uL (4.40-5.60); RDW 13.2 % (11.5-14.5); WBC 9.35 X 10*3/uL (4.50-10.00)
[2023-01-15 16:34] LABS: ALT 45 U/L (10-49); AST 50 U/L (14-35); African American GFR (CKD) 87.8 (60.0-200.0); Albumin 4.4 g/dL (3.8-4.9); Alkaline Phosphatase 82 U/L (41-126); BUN/Creat Ratio 11.11 Ratio (12.00-20.00); Calcium 9.4 mg/dL (8.7-10.3); Carbon Dioxide 26.1 mmol/L (20.0-27.5); Chloride 103 mmol/L (96-109); Chol/HDL Ratio 1.67 Ratio; Creatine Kinase 629 U/L (35-257); Globulin 2.3 g/dL (1.6-3.3); Glucose 94 mg/dL (70-110); LDL Cholesterol,Calculated 38.7 mg/dL (0.0-131.0); Non-African American GFR(CKD) 75.8 (60.0-200.0); Potassium 4.1 mmol/L (3.5-5.5); Sodium 141 mmol/L (135-145); Total Protein 6.8 g/dL (6.2-8.2); VLDL Calculation 16.58 mg/dL (5.00-40.00)
== END | disposition home or self-care (01) ==
LOC: LABWHC1 08:02
PROVIDERS: ATTEND Nurse Practitioner Adult Health
DX: I10 Essential (primary) hypertension (principal); I25.119 Atherosclerotic heart disease of native coronary artery with unspecified angina pectoris; E78.2 Mixed hyperlipidemia; E03.9 Hypothyroidism, unspecified; N40.0 Benign prostatic hyperplasia without lower urinary tract symptoms; R73.9 Hyperglycemia, unspecified
CPT/HCPCS: 36415; 80053; 80061; 82550; 83036; 84153; 84439; 84443; 85025

== ENCOUNTER 2023-03-20 05:56 | Day surgery (SDC) | payer MEDICAID ==
[2023-03-16 10:39] VITALS: BMI 27.7
[2023-03-20] MEDS ORDERED: LACTATED RINGERS 1,000 ML IV SCH (06:05)
[2023-03-20] MEDS ORDERED: LIDOCAINE 1% (10MG/ML) FOR IV START INTRADERMA PRN (06:05)
[2023-03-20 06:45] VITALS: RESP 16; TEMP 97.3
[2023-03-20] MEDS ORDERED: MIDAZOLAM 2 MG/2 ML VIAL IVP ONE (06:45)
[2023-03-20] MEDS ORDERED: ONDANSETRON 4 MG/2 ML VIAL IVP PRN (07:00)
[2023-03-20] MEDS ORDERED: PROPOFOL 10 MG/ML 20 ML VIAL IV ONE (07:03)
--- NOTE | 2023-03-20 07:29 | P.PCN ---
Date of Procedure: 03/20/23 Procedure(s) Performed: Brief history: Patient is a pleasant 57-year-old white male scheduled for an elective upper endoscopy as well as colonoscopy as a part of evaluation of loss and history of GERD/Acharya's esophagus and history of hereditary adenomatous polyposis syndrome with APC gene mutation diagnosed about 12 years ago. Procedure performed: Esophagogastroduodenoscopy with biopsy Colonoscopy Preoperative diagnosis: GERD/Acharya's esophagus History of APC gene mutation with therapeutic polyposis syndrome Anesthesia: MAC Procedure: After informed consent was obtained from the patient was brought into the endoscopy unit and IV sedation was administered by anesthesia under continuous monitoring. Initially upper endoscopy was done. The Olympus GF 160 video endoscope was inserted inserted into the mouth and esophagus intubated without any difficulty and was gradually advanced into the stomach and duodenum and carefully examined. The bulb and second part of the duodenum appeared normal. The scope was then withdrawn into the stomach adequately insufflated with air and upon careful examination the antrum and body, cardia and fundus appeared normal. The scope was then withdrawn into the esophagus. The GE junction was located at 40 cm to the incisors. There was a small hiatal hernia noted. There was a 7 mm GE junction polyp which was biopsied. There was a short segment of Acharya's esophagus extending from 40-42 cm from the incisors and multiple biopsies were done from this area. . Rest of the esophagus appeared normal. Patient tolerated the procedure well. At this time the patient continued to remain sedation. Initial digital rectal examination was normal. Olympus CF 160 video colonoscope was then inserted into the rectum and gradually advanced to the cecum without any difficulty. Careful examination was performed as the scope was gradually being withdrawn. The prep was excellent. The cecum, ascending colon, transverse colon, descending colon, sigmoid colon and rectum appeared normal. Scattered sigmoid diverticula Retroflexion was performed in the rectum and grade 2 internal hemorrhoids were noted. Patient tolerated the procedure well. Impression: 1. Upper endoscopy revealed a 6-7 mm GE junction polyp status post biopsy and short segment Acharya's esophagus extending from 40-42 cm stone the incisors status post multiple biopsies and small hiatal hernia 2. Colonoscopy revealed scattered sigmoid diverticulosis and grade 2 internal hemorrhoids Recommendations: Findings of this examination were discussed with the patient as well as his family. He was advised to follow with the biopsy. Continue with omeprazole daily and follow antireflux measures. Reason the biopsy results will plan a repeat upper endoscopy as well as colonoscopy in 2 years.
[2023-03-20 07:48] VITALS: BP 154/104; PULSE 68
== END 2023-03-20 08:23 | disposition home or self-care (01) ==
LOC: ORWHC2ENDO 05:56
PROVIDERS: ATTEND Internal Medicine Gastroenterology
DX: K29.50 Unspecified chronic gastritis without bleeding (principal); K44.9 Diaphragmatic hernia without obstruction or gangrene; K64.1 Second degree hemorrhoids; K57.30 Diverticulosis of large intestine without perforation or abscess without bleeding; K31.A0 Gastric intestinal metaplasia, unspecified; I10 Essential (primary) hypertension; I25.10 Atherosclerotic heart disease of native coronary artery without angina pectoris; E78.5 Hyperlipidemia, unspecified; E03.9 Hypothyroidism, unspecified; Z86.010 Personal history of colon polyps; Z95.5 Presence of coronary angioplasty implant and graft; Z91.030 Bee allergy status; Z87.891 Personal history of nicotine dependence; Z79.890 Hormone replacement therapy; Z79.899 Other long term (current) drug therapy
CPT/HCPCS: 88305; 88312; 88342; 45378; 43239; J2250; J2704

== ENCOUNTER → 2023-08-20 | Outpatient (CLI) | payer MEDICAID ==
[2023-08-20 11:13] LABS: Basophils # (A) 0.06 X 10*3/uL (0.00-0.10); Basophils % (A) 0.7 %; Eosinophils # (A) 0.05 X 10*3/uL (0.04-0.35); Eosinophils % (A) 0.6 %; HCT 44.7 % (39.6-50.0); HGB 14.6 g/dL (13.0-17.0); Lymphocytes # (A) 3.09 X 10*3/uL (0.90-5.00); Lymphocytes % (A) 38.4 %; MCH 31.1 pg (27.0-32.0); MCHC 32.7 g/dL (32.0-37.0); MCV 95.3 FL (80.0-97.0); Mean Platelet Volume 11.5 FL (9.5-12.2); Monocytes # (A) 0.47 X 10*3/uL (0.20-1.00); Monocytes % (A) 5.8 %; NRBC Per 100 WBC 0 X 10*3/uL (0.00-0.01); Neutrophils # (A) 4.34 X 10*3/uL (1.80-7.70); Platelet Count 230 X 10*3/uL (140-440); RBC 4.69 X 10*6/uL (4.40-5.60); RDW 12.9 % (11.5-14.5); WBC 8.05 X 10*3/uL (4.50-10.00)
[2023-08-20 11:45] LABS: Blood Urea Nitrogen 12.8 mg/dL (9.0-27.0); Carbon Dioxide 26.1 mmol/L (21.6-31.8); Chloride 104 mmol/L (96-109); Chol/HDL Ratio 1.98 Ratio; Creatine Kinase 80 U/L (35-257); Glucose 103 mg/dL (70-110); LDL Cholesterol,Calculated 50.9 mg/dL (0.0-131.0); Potassium 4.1 mmol/L (3.5-5.5); Sodium 141 mmol/L (135-145); VLDL Calculation 19.96 mg/dL (5.00-40.00)
[2023-08-20 11:46] LABS: ALT 32 U/L (10-49); AST 31 U/L (14-35); Albumin 4.2 g/dL (3.8-4.9); Albumin/Globulin Ratio 1.83 Ratio (1.60-3.17); Alkaline Phosphatase 75 U/L (41-126); Calcium 9.5 mg/dL (8.7-10.3); Globulin 2.3 g/dL (1.6-3.3); T4, Free (Free Thyroxine) 1.94 ng/dL (0.80-1.80); Total Bilirubin 0.4 mg/dL (0.3-1.2); Total Protein 6.5 g/dL (6.2-8.2)
== END | disposition home or self-care (01) ==
LOC: LABWHC1 07:52
PROVIDERS: ATTEND Internal Medicine Geriatric Medicine
DX: I25.119 Atherosclerotic heart disease of native coronary artery with unspecified angina pectoris (principal); E03.9 Hypothyroidism, unspecified; R73.9 Hyperglycemia, unspecified
CPT/HCPCS: 36415; 80053; 80061; 82550; 83036; 84439; 84443; 85025

== ENCOUNTER → 2024-02-26 | Outpatient (CLI) | payer MEDICAID ==
[2024-02-26 15:46] LABS: Basophils # (A) 0.04 X 10*3/uL (0.00-0.10); Basophils % (A) 0.5 %; Eosinophils # (A) 0.06 X 10*3/uL (0.04-0.35); Eosinophils % (A) 0.7 %; HCT 42.3 % (39.6-50.0); HGB 14.1 g/dL (13.0-17.0); Lymphocytes # (A) 3.05 X 10*3/uL (0.90-5.00); Lymphocytes % (A) 35.9 %; MCH 32.1 pg (27.0-32.0); MCHC 33.3 g/dL (32.0-37.0); MCV 96.4 FL (80.0-97.0); Mean Platelet Volume 11.9 FL (9.5-12.2); Monocytes # (A) 0.43 X 10*3/uL (0.20-1.00); Monocytes % (A) 5.1 %; NRBC Per 100 WBC 0 X 10*3/uL (0.00-0.01); Neutrophils # (A) 4.88 X 10*3/uL (1.80-7.70); Neutrophils % (A) 57.4 %; Platelet Count 238 X 10*3/uL (140-440); RBC 4.39 X 10*6/uL (4.40-5.60); WBC 8.49 X 10*3/uL (4.50-10.00)
[2024-02-26 16:17] LABS: ALT 39 U/L (10-49); AST 28 U/L (14-35); Albumin 4.1 g/dL (3.8-4.9); Albumin/Globulin Ratio 2.28 Ratio (1.60-3.17); Alkaline Phosphatase 74 U/L (41-126); Blood Urea Nitrogen 13.2 mg/dL (9.0-27.0); Calcium 8.6 mg/dL (8.7-10.3); Chloride 106 mmol/L (96-109); Chol/HDL Ratio 2.12 Ratio; Globulin 1.8 g/dL (1.6-3.3); Glucose 96 mg/dL (70-110); LDL Cholesterol,Calculated 61.6 mg/dL (0.0-131.0); Potassium 3.9 mmol/L (3.5-5.5); Sodium 142 mmol/L (135-145); Total Bilirubin 0.3 mg/dL (0.3-1.2); Total Protein 5.9 g/dL (6.2-8.2); VLDL Calculation 13.92 mg/dL (5.00-40.00)
== END | disposition home or self-care (01) ==
LOC: LABWHC1 07:48
PROVIDERS: ATTEND Internal Medicine Geriatric Medicine
DX: I25.119 Atherosclerotic heart disease of native coronary artery with unspecified angina pectoris (principal); E78.2 Mixed hyperlipidemia; E03.9 Hypothyroidism, unspecified; I10 Essential (primary) hypertension; R73.9 Hyperglycemia, unspecified
CPT/HCPCS: 36415; 80053; 80061; 83036; 84439; 84443; 85025

== ENCOUNTER → 2024-08-24 | Outpatient (CLI) | payer MEDICAID ==
[2024-08-24 11:04] LABS: Basophils # (A) 0.05 X 10*3/uL (0.00-0.10); Basophils % (A) 0.6 %; Eosinophils # (A) 0.05 X 10*3/uL (0.04-0.35); Eosinophils % (A) 0.6 %; HCT 42.4 % (39.6-50.0); HGB 14.3 g/dL (13.0-17.0); Lymphocytes # (A) 3.34 X 10*3/uL (0.90-5.00); Lymphocytes % (A) 38.7 %; MCH 31.8 pg (27.0-32.0); MCHC 33.7 g/dL (32.0-37.0); MCV 94.4 FL (80.0-97.0); Mean Platelet Volume 10.7 FL (9.5-12.2); Monocytes % (A) 5.8 %; NRBC Per 100 WBC 0 X 10*3/uL (0.00-0.01); Neutrophils # (A) 4.66 X 10*3/uL (1.80-7.70); Neutrophils % (A) 54.1 %; Platelet Count 264 X 10*3/uL (140-440); RBC 4.49 X 10*6/uL (4.40-5.60); RDW 12.8 % (11.5-14.5); WBC 8.62 X 10*3/uL (4.50-10.00)
[2024-08-24 16:33] LABS: ALT 50 U/L (10-49); AST 38 U/L (14-35); Albumin 4.3 g/dL (3.8-4.9); Albumin/Globulin Ratio 1.87 Ratio (1.60-3.17); Alkaline Phosphatase 68 U/L (41-126); Blood Urea Nitrogen 17.9 mg/dL (9.0-27.0); Calcium 9.4 mg/dL (8.7-10.3); Carbon Dioxide 28.7 mmol/L (21.6-31.8); Chloride 103 mmol/L (96-109); Creatine Kinase 81 U/L (35-257); Globulin 2.3 g/dL (1.6-3.3); Glucose 109 mg/dL (70-110); Prostate Specific Antigen 0.54 ng/mL (0.000-3.500); Sodium 143 mmol/L (135-145); T4, Free (Free Thyroxine) 1.71 ng/dL (0.80-1.80); Total Bilirubin 0.4 mg/dL (0.3-1.2); Total Protein 6.6 g/dL (6.2-8.2)
== END | disposition home or self-care (01) ==
LOC: LABWHC1 08:08
PROVIDERS: ATTEND Internal Medicine Geriatric Medicine
DX: I25.119 Atherosclerotic heart disease of native coronary artery with unspecified angina pectoris (principal); E78.2 Mixed hyperlipidemia; E03.9 Hypothyroidism, unspecified; N40.0 Benign prostatic hyperplasia without lower urinary tract symptoms
CPT/HCPCS: 36415; 80053; 80061; 82550; 83036; 84153; 84439; 84443; 85025

== ENCOUNTER 2024-11-06 10:08 | Emergency (ER) | payer MEDICAID ==
[2024-11-06 10:22] VITALS: TEMP 98.3
--- NOTE | 2024-11-06 11:15 | ED ---
General Adult HPI - General Chief complaint: Neuro Symptoms/Deficit Stated complaint: Blurred vision Time Seen by Provider: 11/06/24 10:52 Source: patient, family, RN notes reviewed Mode of arrival: ambulatory Limitations: no limitations - History of Present Illness Initial comments: Patient is a 59-year-old male present to the emergency department with concern with left eye blurry vision. Onset of symptoms was prior to arrival. Symptoms have essentially resolved at this time. Patient had blurry vision just involving his left eye. Patient also had some left-sided facial paresthesia. This is also resolved. No weakness. No confusion. No speech problems. Patient has had similar episodes multiple times over the past few months however this was longer and more severe. - Related Data Home Medications Medication Instructions Recorded Confirmed Levothyroxine Sodium [Synthroid] 200 mcg PO DAILY 09/10/16 03/20/23 Omeprazole 20 mg PO AC-BID 09/10/16 03/20/23 Multivitamin [Men's Multi-Vitamin] 1 tab PO DAILY 03/27/17 03/20/23 Aspirin 81 mg PO DAILY 04/15/17 03/20/23 Metoprolol Tartrate 25 mg PO BID 04/16/17 03/20/23 Atorvastatin [Lipitor] 40 mg PO DAILY 01/23/21 03/20/23 Sildenafil Citrate 20 mg PO DAILY PRN 08/07/22 03/20/23 lisinopriL [Zestril] 30 mg PO DAILY 03/16/23 03/20/23 Previous Rx's Medication Instructions Recorded EPINEPHrine (Auto Inject) [Epipen] 0.3 mg IM ONCE PRN #1 pen 03/13/20 Allergies Allergy/AdvReac Type Severity Reaction Status Date / Time bee venom protein (honey bee) AdvReac Anaphylaxis Verified 11/06/24 10:22 Review of Systems ROS Statement: Those systems with pertinent positive or pertinent negative responses have been documented in the HPI. ROS Other: All systems not noted in ROS Statement are negative. Constitutional: Denies: fever Eyes: Reports: as per HPI, vision change ENT: Denies: ear pain Respiratory: Denies: cough Cardiovascular: Denies: chest pain Endocrine: Denies: fatigue Gastrointestinal: Denies: abdominal pain Musculoskeletal: Denies: back pain Neurological: Reports: as per HPI, paresthesias. Denies: headache, weakness, confusion Past Medical History Past Medical History: Cancer, GERD/Reflux, Hyperlipidemia, Hypertension, Thyroid Disorder Additional Past Medical History / Comment(s): 3 stents, HX THYROID CANCER, hx. colon polyps, occasional blood in stool, hx. hemorrhoids, diverticulosis, hiatal hernia. HX (FAP) FAMILIAL ADENOMATOUS POLYPOSIS. CRUZ'S ESOPHAGUS History of Any Multi-Drug Resistant Organisms: None Reported Past Surgical History: Heart Catheterization With Stent Additional Past Surgical History / Comment(s): THYROIDECTOMY, EGD, COLONOSCOPY Past Anesthesia/Blood Transfusion Reactions: No Reported Reaction Additional Past Anesthesia/Blood Transfusion Reaction / Comment(s): No blood transfusion Date of Last Stent Placement:: 2016 Past Psychological History: No Psychological Hx Reported Smoking Status: Never smoker Past Alcohol Use History: Occasional Past Drug Use History: Marijuana - Past Family History Father Family Medical History: Cancer Additional Family Medical History / Comment(s): MELANOMA Mother Family Medical History: Pulmonary Embolus General Exam Limitations: no limitations General appearance: alert, in no apparent distress Head exam: Present: atraumatic, normocephalic Eye exam: Present: normal appearance, PERRL, EOMI Expanded Eyelids: Normal Inspection: Bilateral Pupils: Regular, Round: Bilateral Sclera/Conjunctival: Normal Inspection: Bilateral Posterior chamber: Normal Inspection: Bilateral ENT exam: Present: normal oropharynx Neck exam: Present: normal inspection Respiratory exam: Present: normal lung sounds bilaterally Cardiovascular Exam: Present: regular rate, normal rhythm GI/Abdominal exam: Present: soft. Absent: tenderness Extremities exam: Present: normal inspection, full ROM. Absent: tenderness Neurological exam: Present: alert, oriented X3, CN II-XII intact. Absent: motor sensory deficit Expanded Neurological exam: Present: protecting the airway Patient oriented to: Present: person, place, time Speech: Present: fluid speech Cranial nerves: EOM's Intact: Normal, Facial Sensation: Normal Sensory exam: Upper Extremity Light Touch: Normal, Lower Extremity Light Touch: Normal Motor strength exam: RUE: 5, LUE: 5, RLE: 5, LLE: 5 Eye Response: (4) open spontaneously Motor Response: (6) obeys commands Verbal Response: (5) oriented Psychiatric exam: Present: normal affect, normal mood Skin exam: Present: normal color Course Vital Signs 11/06/24 10:17 Temperature 98.3 F Pulse Rate 64 Respiratory 18 Rate Blood Pressure 146/94 O2 Sat by Pulse 99 Oximetry EKG Findings - EKG Results: EKG: interpreted by ERMD, sinus rhythm, normal axis, normal QRS, normal ST/T Medical Decision Making - Medical Decision Making Was pt. sent in by a medical professional or institution (KELIN Henriquez, DIRECTOR OF RETAIL ANALYTICS, urgent care, hospital, or correction...) When possible be specific @ -No Did you speak to anyone other than the patient for history (EMS, parent, family, police, friend...)? What history was obtained from this source @ -No Did you review nursing and triage notes (agree or disagree)? Why? @ -I reviewed and agree with nursing and triage notes Were old charts reviewed (outside hosp., previous admission, EMS record, old EKG, old radiological studies, urgent care reports/EKG's, correction records)? Report findings @ -No old charts were reviewed Differential Diagnosis (chest pain, altered mental status, abdominal pain women, abdominal pain men, vaginal bleeding, weakness, fever, dyspnea, syncope, headache, dizziness, GI bleed, back pain, seizure, CVA, palpatations, mental health, musculoskeletal)? @ -MDM differential paresthesia differential Weakness: Hypoglycemia, shock, sepsis, hyponatremia, anemia, infection, AR, ETOH, adverse medicine reaction, overdose, stroke, this is not meant to be an all-inclusive list. EKG interpreted by me (3pts min.). @ -As above X-rays interpreted by me (1pt min.). @ -None done CT interpreted by me (1pt min.). @ -CT scan of the brain without acute abnormality U/S interpreted by me (1pt. min.). @ -None done What testing was considered but not performed or refused? (CT, X-rays, U/S, labs)? Why? @ -None What meds were considered but not given or refused? Why? @ -None Did you discuss the management of the patient with other professionals (professionals i.e. KELIN Henriquez, DIRECTOR OF RETAIL ANALYTICS, lab, RT, psych nurse, poultry process worker, lead javascript engineer, teacher, flight radio officer, nurse outreach case manager)? Give summary @ -No Was smoking cessation discussed for >3mins.? @ -No Was critical care preformed (if so, how long)? @ -No Were there social determinants of health that impacted care today? How? ( Homelessness, low income, unemployed, alcoholism, drug addiction, transportation, low edu. Level, literacy, decrease access to med. care, longterm, rehab)? @ -No Was there de-escalation of care discussed even if they declined (Discuss DNR or withdrawal of care, Hospice)? DNR status @ -No What co-morbidities impacted this encounter? (DM, HTN, Smoking, COPD, CAD, Cancer, CVA, ARF, Chemo, Hep., AIDS, mental health diagnosis, sleep apnea, morbid obesity)? @ -None Was patient admitted / discharged? Hospital course, mention meds given and route, prescriptions, significant lab abnormalities, going to OR and other pertinent info. @ -Patient presents with transient blurry vision and facial paresthesia. Symptoms essentially resolved on arrival on reevaluation patient is symptom- free. No neurological deficits. IV evaluation unremarkable. Patient will be discharged with close follow-up with primary care physician with probable neurology follow-up as well as ophthalmology. Patient updated on results and need for close follow-up. Undiagnosed new problem with uncertain prognosis? @ -No Drug Therapy requiring intensive monitoring for toxicity (Heparin, Nitro, Insulin, Cardizem)? @ -No Were any procedures done? @ -No Diagnosis/symptom? @ -Blurred vision Acute, or Chronic, or Acute on Chronic? @ -Acute Uncomplicated (without systemic symptoms) or Complicated (systemic symptoms)? @ -Default Side effects of treatment? @ -No Exacerbation, Progression, or Severe Exacerbation? @ -No Poses a threat to life or bodily function? How? (Chest pain, USA, AR, pneumonia, PE, COPD, DKA, ARF, appy, cholecystitis, CVA, Diverticulitis, Homicidal, Suicidal, threat to staff... and all critical care pts) @ -No - Lab Data Result diagrams: 11/06/24 11:10 11/06/24 11:12 Lab Results 11/06/24 11/06/24 11/06/24 Range/Units 11:10 11:10 11:10 WBC 12.8 H (3.8-10.6) k/uL RBC 5.08 (4.30-5.90) m/uL Hgb 15.6 (13.0-17.5) gm/dL Hct 47.1 (39.0-53.0) % MCV 92.9 (80.0-100.0) fL MCH 30.7 (25.0-35.0) pg MCHC 33.1 (31.0-37.0) g/dL RDW 13.0 (11.5-15.5) % Plt Count 240 (150-450) k/uL MPV 8.1 Neutrophils % 67 % Lymphocytes % 27 % Monocytes % 4 % Eosinophils % 0 % Basophils % 1 % Neutrophils # 8.6 H (1.3-7.7) k/uL Lymphocytes # 3.5 (1.0-4.8) k/uL Monocytes # 0.4 (0-1.0) k/uL Eosinophils # 0.1 (0-0.7) k/uL Basophils # 0.1 (0-0.2) k/uL PT 11.0 (10.0-12.5) sec INR 1.0 (<1.2) APTT 21.9 L (22.0-30.0) sec Sodium (137-145) mmol/L Potassium (3.5-5.1) mmol/L Chloride (98-107) mmol/L Carbon Dioxide (22-30) mmol/L Anion Gap mmol/L BUN (9-20) mg/dL Creatinine (0.66-1.25) mg/dL Est GFR (CKD-EPI)AfAm (>60 ml/min/1.73 sqM) Est GFR (CKD-EPI)NonAf (>60 ml/min/1.73 sqM) Glucose (74-99) mg/dL Plasma Lactic Acid Slava (0.7-2.0) mmol/L Calcium (8.4-10.2) mg/dL Magnesium (1.6-2.3) mg/dL Total Bilirubin (0.2-1.3) mg/dL AST (17-59) U/L ALT (4-49) U/L Alkaline Phosphatase (38-126) U/L Troponin I <0.012 (0.000-0.034) ng/mL Total Protein (6.3-8.2) g/dL Albumin (3.5-5.0) g/dL 11/06/24 11/06/24 Range/Units 11:12 12:00 WBC (3.8-10.6) k/uL RBC (4.30-5.90) m/uL Hgb (13.0-17.5) gm/dL Hct (39.0-53.0) % MCV (80.0-100.0) fL MCH (25.0-35.0) pg MCHC (31.0-37.0) g/dL RDW (11.5-15.5) % Plt Count (150-450) k/uL MPV Neutrophils % % Lymphocytes % % Monocytes % % Eosinophils % % Basophils % % Neutrophils # (1.3-7.7) k/uL Lymphocytes # (1.0-4.8) k/uL Monocytes # (0-1.0) k/uL Eosinophils # (0-0.7) k/uL Basophils # (0-0.2) k/uL PT (10.0-12.5) sec INR (<1.2) APTT (22.0-30.0) sec Sodium 137 (137-145) mmol/L Potassium 4.1 (3.5-5.1) mmol/L Chloride 100 (98-107) mmol/L Carbon Dioxide 29 (22-30) mmol/L Anion Gap 8 mmol/L BUN 21 H (9-20) mg/dL Creatinine 1.06 (0.66-1.25) mg/dL Est GFR (CKD-EPI)AfAm 89 (>60 ml/min/1.73 sqM) Est GFR (CKD-EPI)NonAf 77 (>60 ml/min/1.73 sqM) Glucose 104 H (74-99) mg/dL Plasma Lactic Acid Slava 1.0 (0.7-2.0) mmol/L Calcium 9.1 (8.4-10.2) mg/dL Magnesium 1.9 (1.6-2.3) mg/dL Total Bilirubin 1.0 (0.2-1.3) mg/dL AST 33 (17-59) U/L ALT 41 (4-49) U/L Alkaline Phosphatase 73 (38-126) U/L Troponin I (0.000-0.034) ng/mL Total Protein 6.9 (6.3-8.2) g/dL Albumin 4.2 (3.5-5.0) g/dL Disposition Clinical Impression: Blurred vision, left eye Disposition: HOME SELF-CARE Condition: Stable Instructions (If sedation given, give patient instructions): Blurred Vision (ED) Additional Instructions: Please follow-up with ophthalmology and primary care physician beginning of the week. Consider neurology follow-up. Return for worsening vision, pain, confusion, speech problems, weakness, worsening or changing symptoms or any othe r concerns. Is patient prescribed a controlled substance at d/c from ED?: No Referrals: Jameson Tsang MD [Primary Care Provider] - 1-2 days Preet Burton DO [STAFF PHYSICIAN] - 1-2 days Dajuan Santana MD [STAFF PHYSICIAN] - 1-2 days Time of Disposition: 13:09
[2024-11-06 11:17] LABS: Basophils # (A) 0.1 k/uL (0-0.2); Basophils % (A) 1 %; Eosinophils # (A) 0.1 k/uL (0-0.7); Eosinophils % (A) 0 %; HCT 47.1 % (39.0-53.0); HGB 15.6 gm/dL (13.0-17.5); Lymphocytes # (A) 3.5 k/uL (1.0-4.8); Lymphocytes % (A) 27 %; MCH 30.7 pg (25.0-35.0); MCHC 33.1 g/dL (31.0-37.0); MCV 92.9 fL (80.0-100.0); Mean Platelet Volume 8.1; Monocytes # (A) 0.4 k/uL (0-1.0); Monocytes % (A) 4 %; Neutrophils # (A) 8.6 k/uL (1.3-7.7); Neutrophils % (A) 67 %; Platelet Count 240 k/uL (150-450); RBC 5.08 m/uL (4.30-5.90); WBC 12.8 k/uL (3.8-10.6)
[2024-11-06 11:25] LABS: ALT 41 U/L (4-49); AST 33 U/L (17-59); African American GFR (CKD) 89 (>60 ml/min/1.73 sqM); Albumin 4.2 g/dL (3.5-5.0); Alkaline Phosphatase 73 U/L (38-126); Anion Gap 8 mmol/L; Blood Urea Nitrogen 21 mg/dL (9-20); Calcium 9.1 mg/dL (8.4-10.2); Carbon Dioxide 29 mmol/L (22-30); Chloride 100 mmol/L (98-107); Glucose 104 mg/dL (74-99); Magnesium 1.9 mg/dL (1.6-2.3); Non-African American GFR(CKD) 77 (>60 ml/min/1.73 sqM); Potassium 4.1 mmol/L (3.5-5.1); Sodium 137 mmol/L (137-145); Total Protein 6.9 g/dL (6.3-8.2)
[2024-11-06 11:48] LABS: Partial Thromboplastin Time 21.9 sec (22.0-30.0)
--- NOTE | 2024-11-06 11:48 | CT ---
EXAMINATION TYPE: CT brain wo con DATE OF EXAM: 11/06/2024 COMPARISON: Brain CT September 27, 2018 CLINICAL INDICATION: Male, 59 years old with history of visual changes, LEFT EYE VISUAL CHANGES TECHNIQUE: CT scan of the head is performed without contrast. CT DLP: 1166.9 mGycm. Automated Exposure Control for Dose Reduction was Utilized. FINDINGS: There is no acute intracranial hemorrhage or midline shift identified. There is moderate diffuse ventricular and sulcal prominence redemonstrated. There is focal low-attenuation in the left posterior horn periventricular white matter redemonstrated. The globes are intact and the visualize d sinuses are clear. IMPRESSION: No acute intracranial hemorrhage or midline shift. No significant change from most recen t prior CT. If there is clinical concern for acute stroke further investigation with MRI study may BE warranted [facility], , 11/06/2024 11:46 AM
--- NOTE | 2024-11-06 12:24 | CT ---
EXAMINATION TYPE: CT angio head neck DATE OF EXAM: 11/06/2024 COMPARISON: NONE CLINICAL INDICATION: Male, 59 years old with history of visual changes, LEFT EYE VISUAL CHANGES, TECHNIQUE: CTA scan of the head and neck is performed with IV Contrast, patient injected with 65 ml mL of Isovue 370, axial images are obtained, coronal and sagittal reformatted images are reviewed. 3D reconstructed images are created on an independent workstation and reviewed. NASCET criteria was use d in interpretation of this exam? CT DLP: 1596.5 mGycm. Automated Exposure Control for Dose Reduction was Utilized. FINDINGS: Vertebral arteries: The vertebral arteries are patent. Vertebral artery dominance: Codominant Basilar artery: The basilar artery is intact. The basilar artery bifurcation is normal. Internal Carotid arteries: The cervical, petrous, cavernous and supraclinoid segments are normal. LINDA: Patent with no evidence of aneurysm. ACOM: Present without evidence of aneurysm. MCA: Patent with no evidence of aneurysm. GUSSET FOLDER: Patent with no evidence of aneurysm. PCOM: Patent on the right. Dural sinuses: Patent. CTA NECK: Right Carotid System: The common carotid artery and external carotid artery are patent. The carotid bifurcation demonstrate s no evidence of hemodynamically significant stenosis. Mild Peripheral calcified plaque. The remainin g portions of the internal carotid artery demonstrate normal size without significant narrowing. Left Carotid System: The common carotid artery and external carotid artery are patent. The carotid bifurcation demonstrate s no evidence of hemodynamically significant stenosis. The remaining portions of the internal carotid artery demonstrate normal size without significant narrowing. Vertebral arteries are patent without evidence hemodynamically significant stenosis. There is a three-vessel aortic arch. The origins of the great vessels are patent. No evidence of hemo dynamically significant stenosis. Mild to moderate anterior spurring at C5-C6 level. Thyroid gland is surgically absent. IMPRESSION: No evidence of significant stenosis at the carotid bifurcations. No evidence of intracranial large vessel occlusion or intracranial aneurysm. [facility], , 11/06/2024 12:22 PM
[2024-11-06 13:23] VITALS: BP 130/88; PULSE 83; RESP 17
== END 2024-11-06 13:24 | disposition home or self-care (01) ==
LOC: EC 10:08
DX: H53.8 Other visual disturbances (principal); Z91.030 Bee allergy status
CPT/HCPCS: 36415; 93005; 80053; 83605; 83735; 84484; 85025; 85610; 85730; 70496; 70450; 70498; 99284; Q9967

== ENCOUNTER → 2025-01-20 | Outpatient (CLI) | payer MEDICAID ==
--- NOTE | 2025-01-20 11:37 | NM ---
EXAMINATION TYPE: NM stress cardiolite complete DATE OF EXAM: 01/20/2025 COMPARISON: Prior stress test 2021 CLINICAL INDICATION: Male, 59 years old with history of I25.10 cardiovascular disease; history of hyp ercholesteremia and hypertension. History of heart catheterization with angioplasty x3 TECHNIQUE: After the intravenous administration of 9.7 mCi Tc 99m Sestamibi - Rest images obtained 4 5 minutes post injection. The patient exercised using a KAMRAN protocol and 1 minute prior to peak e xercise was injected with 26.6 mCi Tc 99m Sestamibi - Stress images obtained 10 minutes post injectio n. FINDINGS: Targeted heart rate was achieved during performance of the study. Review of stress and rest SPECT new ges demonstrates persistent small area of diminished radiotracer uptake inferior lateral left ventric ular wall on stress and rest images slightly more prominent on stress images on the Polar map. Gated analysis shows normal wall motion with an estimated left ventricular ejection fraction of 62 %. IMPRESSION: Equivocal findings. Difficult to exclude small area of acute infarct or old infarct thou gh this is less prominent versus prior study. Consider further investigation with direct catheter ang iogram based on degree of clinical suspicion. [facility], , 01/20/2025 11:34 AM
--- NOTE | 2025-01-20 11:50 | CA ---
Transthoracic Echo Report Name: Shad Crabtree Age: 59 Gender: M : 1965 Exam Date: 01/20/2025 10:19 Exam Location: [facility] Ht (in): 73 Wt (lb): 205 Ordering Physician: Suzi Kelsey MD ([id number]) Attending/Referring Phys: Vacuum Furnace Operator Maine Hayward RDCS Procedure CPT: Indications: I25.10 cardiovascular disease Cardiac Hx: Technical Quality: Good Contrast 1: Total Dose (mL): Contrast 2: Total Dose (mL): MEASUREMENTS (Male / Female) Normal Values 2D ECHO LV Diastolic Diameter PLAX 4.9 cm 4.2 - 5.9 / 3.9 - 5.3 cm LV Systolic Diameter PLAX 2.7 cm IVS Diastolic Thickness 1.0 cm 0.6 - 1.0 / 0.6 - 0.9 cm LVPW Diastolic Thickness 1.0 cm 0.6 - 1.0 / 0.6 - 0.9 cm LV Relative Wall Thickness 0.4 RV Internal Dim ED PLAX 3.6 cm LA Systolic Diameter LX 4.1 cm 3.0 - 4.0 / 2.7 - 3.8 cm LV Diastolic Volume MOD 4C 123.7 cm??? LV Systolic Volume MOD 4C 57.0 cm??? LV Ejection Fraction MOD 4C 53.9 % LV Cardiac Index MOD 4C 2303.0 cm???/min???m??? LV Diastolic Length 4C 9.2 cm LV Systolic Length 4C 7.8 cm LV Diastolic Volume MOD 2C 107.4 cm??? LV Systolic Volume MOD 2C 53.2 cm??? LV Ejection Fraction MOD 2C 50.5 % LV Cardiac Index MOD 2C 1872.4 cm???/min???m??? LV Diastolic Length 2C 9.0 cm LV Systolic Length 2C 7.7 cm M-MODE Aortic Root Diameter MM 4.1 cm AV Cusp Separation MM 2.5 cm DOPPLER AV Peak Velocity 103.3 cm/s AV Peak Gradient 4.3 mmHg AI Peak Velocity 240.7 cm/s AI Peak Gradient 23.2 mmHg AI Pressure Half Time 1758.5 ms Mitral E Point Velocity 73.9 cm/s Mitral A Point Velocity 82.3 cm/s Mitral E to A Ratio 0.9 MV Deceleration Time 307.3 ms TR Peak Velocity 186.0 cm/s TR Peak Gradient 13.8 mmHg Right Ventricular Systolic Press 23.8 mmHg FINDINGS Left Ventricle Left ventricular ejection fraction is estimated at 55-60 %. Left ventricular cavity size normal. Left ventricular wall thickness normal. Right Ventricle Mild right ventricular dilatation. Right ventricular systolic pressure within normal limits. Right Atrium Mild right atrial dilatation. No right atrial thrombus or mass seen. Left Atrium Normal left atrial size. No left atrial thrombus or mass present. Mitral Valve Structurally normal mitral valve. No mitral stenosis, regurgitation or prolapse. Aortic Valve Trileaflet aortic valve. No aortic stenosis. Trace to mild aortic regurgitation. Tricuspid Valve Structurally normal tricuspid valve. Trace to mild tricuspid regurgitation. Pulmonic Valve Structurally normal pulmonic valve. Trace pulmonic regurgitation. Pericardium No pericardial effusion. Aorta Mild aortic dilatation at the level of the sinuses of valsalva 41 mm CONCLUSIONS LVEF 55% No obvious regional wall motion abnormality Mild biatrial dilatation No significant valvular dysfunction Aortic root at upper limit of normal measuring at 4.1 cm Previewed by: Dr Eliazar Nava (Electronically Signed) Final Date: 20 January 2025 11:49
--- NOTE | 2025-01-20 12:41 | CA ---
Exercise Stress Test Report Name: Shad Crabtree Exam Date: 01/20/2025 09:44 Exam Location: [facility] Ht (in): 73 Wt (lb): 205 BSA: 2.17 Ordering Phys: Suzi Kelsey MD Referring Phys: BEATA Technologist: ANDIE SOLANO Age: 59 Gender: M : 1965 Procedure CPT: Indications: I25.10 cardiovascular disease ICD-10 Codes: Patient History: HTN, HIGH CHOL, CATH W 3 PTCA. Medications: Meds past 24 hrs: Pretest Chest Pain: STRESS TEST Samuel Protocol Exercise Duration (min:sec): 09:[address] Depressions (mm): Angina Score: Mckee Score: Resting HR (bpm): 86 Peak HR (bpm): 149 Resting BP (mmHg): 149 / 89 Peak BP (mmHg): 198 / 91 MPHR: 161 Target HR: 137 % MPHR: 93 METS: 10.3 Total Dose: Peak Dose: Atropine: Double Product: 30678 BP Response: Stress Termination: TARGET HR REACHED/MAX EXERTION Stress Symptoms: NO SYMPTOMS Stress Summary: ECG ANALYSIS Resting ECG: Normal sinus rhythm Stress EC mm ST depressions in inferolateral leads at peak stress. This is diagnostic for ischemia CONCLUSIONS Good exercise tolerance for age achieving 10.3 METS Normal hemodynamic and clinical response to treadmill exercise Abnormal ECG response to treadmill exercise Recommend further cardiac testing like CCTA or stress test with imaging or cardiac catheterization based on clinical correlation. Dr Eliazar Nava (Electronically Signed) Final Date: 20 January 2025 12:40
== END | disposition home or self-care (01) ==
LOC: RADNMMAIN 08:13
PROVIDERS: ATTEND Internal Medicine Interventional Cardiology
DX: I25.10 Atherosclerotic heart disease of native coronary artery without angina pectoris (principal); I51.7 Cardiomegaly; I10 Essential (primary) hypertension; E78.00 Pure hypercholesterolemia, unspecified
CPT/HCPCS: 93017; 93306; 78452; A9500

== ENCOUNTER → 2025-03-10 | Outpatient (CLI) | payer MEDICAID ==
[2025-03-10 15:33] LABS: Basophils # (A) 0.05 X 10*3/uL (0.00-0.10); Basophils % (A) 0.6 %; Eosinophils # (A) 0.03 X 10*3/uL (0.04-0.35); Eosinophils % (A) 0.4 %; HCT 42.8 % (39.6-50.0); HGB 14.1 g/dL (13.0-17.0); Immature Grans, Automated 0.40 %; Lymphocytes # (A) 2.65 X 10*3/uL (0.90-5.00); Lymphocytes % (A) 32.2 %; MCH 31.4 pg (27.0-32.0); MCHC 32.9 g/dL (32.0-37.0); MCV 95.3 FL (80.0-97.0); Monocytes # (A) 0.42 X 10*3/uL (0.20-1.00); Monocytes % (A) 5.1 %; NRBC Per 100 WBC 0 X 10*3/uL (0.00-0.01); Neutrophils # (A) 5.05 X 10*3/uL (1.80-7.70); Neutrophils % (A) 61.3 %; Platelet Count 257 X 10*3/uL (140-440); RBC 4.49 X 10*6/uL (4.40-5.60); RDW 13.0 % (11.5-14.5); WBC 8.23 X 10*3/uL (4.50-10.00)
[2025-03-10 17:02] LABS: Creatine Kinase 74 U/L (35-257); T4, Free (Free Thyroxine) 1.26 ng/dL (0.80-1.80); Triglycerides 66.50 mg/dL (0.00-149.00); VLDL Calculation 13.30 mg/dL (5.00-40.00)
[2025-03-10 17:23] LABS: ALT 25 U/L (10-49); AST 25 U/L (14-35); Albumin 4.0 g/dL (3.8-4.9); Albumin/Globulin Ratio 2.00 Ratio (1.60-3.17); Alkaline Phosphatase 72 U/L (41-126); Anion Gap 10.70 mmol/L (4.00-12.00); BUN/Creat Ratio 12.36 Ratio (12.00-20.00); Blood Urea Nitrogen 13.6 mg/dL (9.0-27.0); Calcium 9.0 mg/dL (8.7-10.3); Carbon Dioxide 26.3 mmol/L (21.6-31.8); Chloride 105 mmol/L (96-109); Cholesterol 133.00 mg/dL (0.00-200.00); Globulin 2.0 g/dL (1.6-3.3); Glucose 90 mg/dL (70-110); HDL Cholesterol 79.00 mg/dL (40.00-60.00); LDL Cholesterol,Calculated 40.7 mg/dL (0.0-131.0); Potassium 4.5 mmol/L (3.5-5.5); Sodium 142 mmol/L (135-145); Total Protein 6.0 g/dL (6.2-8.2)
== END | disposition home or self-care (01) ==
LOC: LABWHC1 08:40
PROVIDERS: ATTEND Nurse Practitioner Adult Health
DX: I25.119 Atherosclerotic heart disease of native coronary artery with unspecified angina pectoris (principal); E78.2 Mixed hyperlipidemia; E03.9 Hypothyroidism, unspecified; R73.9 Hyperglycemia, unspecified
CPT/HCPCS: 36415; 80053; 80061; 82550; 83036; 84439; 84443; 85025